=== PATIENT | female | born 1965 ===

== ENCOUNTER 2020-08-13 09:20 | Outpatient (REF) | payer OTHER, SELFPAY | END 2020-08-13 09:21 | disposition home or self-care (01) | LOC: HO.LAB 09:20 | PROVIDERS: Visit Provider Hospitalist | DX: Z20.822 Contact with and (suspected) exposure to COVID-19 (principal) | CPT/HCPCS: 36415; U0003 ==

== ENCOUNTER 2020-11-14 14:35 | Outpatient (REF) | payer OTHER, SELFPAY ==
[2020-11-20 14:22] LABS: HPV mRNA E6/E7 Not Detected (Not Detected)
== END 2020-11-14 14:36 | disposition home or self-care (01) ==
LOC: HO.LNP 14:35
PROVIDERS: Visit Provider Internal Medicine
DX: Z12.4 Encounter for screening for malignant neoplasm of cervix (principal); Z11.51 Encounter for screening for human papillomavirus (HPV)
CPT/HCPCS: 87624; 88142

== ENCOUNTER → 2020-12-19 13:28 | Outpatient (BNVA) | payer OTHER, SELFPAY | PROVIDERS: PCP Internal Medicine; Visit Provider Physician Assistant | DX: Z12.11 Encounter for screening for malignant neoplasm of colon (principal); K21.9 Gastro-esophageal reflux disease without esophagitis | CPT/HCPCS: Q3014 ==

== ENCOUNTER 2021-01-03 15:14 | Outpatient (REF) | payer OTHER, SELFPAY ==
--- NOTE | ~2021-01-03 | MM_ITS ---
EXAMINATION: MM SCREENING DIGITAL BREAST TOMOSYNTHESIS, BILATERAL CLINICAL INFORMATION: Screening. Asymptomatic. The lifetime risk of breast cancer based on the Tyrer-Cuzick Model is 7%. COMPARISON: Mammography: 09/29/2016, 05/25/2011, 07/30/2008 TECHNIQUE: Digital breast tomosynthesis is performed in both the craniocaudal and mediolateral oblique views along with computer-aided detection (CAD). Synthesized 2D images are generated from the tomosynthesis. Additional exaggerated right CC view is provided. FINDINGS: There are scattered areas of fibroglandular density (ACR BI-RADS breast composition Category b). There are no significant masses, abnormal calcifications, or other abnormalities. Parenchymal pattern is similar to prior studies. Skin contours are smooth. MM/MM tomosynthesis screening BI IMPRESSION: No mammographic evidence of malignancy. ASSESSMENT: BI-RADS 1: Negative RECOMMENDATION: Routine annual mammography screening. This patient's information was entered into a reminder system with a target due date for their next mammogram.
== END 2021-01-03 15:15 | disposition home or self-care (01) ==
LOC: HO.MAMMO 15:14
PROVIDERS: PCP Internal Medicine; Visit Provider Internal Medicine
DX: Z12.31 Encounter for screening mammogram for malignant neoplasm of breast (principal)
CPT/HCPCS: 77063; 77067

== ENCOUNTER 2021-01-13 11:58 | Day surgery (SDC) | payer OTHER, SELFPAY ==
--- NOTE | 2021-01-10 08:54 | P.CONAN_ITS ---
Documented by User: Kiki Gonzalezney 01/10/21 08:54 HPI - Anesthesia Eval Consult details Narrative: 55yo F for Upper Endoscopy and Colonoscopy PMFSH Active Problems Active Problems: All Active Problems (Updated 12/19/20 @ 14:02 by Charito Thompson PA-C) Encounter for screening laboratory testing for COVID-19 virus in asymptomatic patient (Acute) Atopic dermatitis (Acute) Encounter for screening colonoscopy (Acute) Acid reflux (Acute) Encounter for general adult medical examination with abnormal findings (Acute) Anxiety disorder (Acute) Calcific tendinitis of right shoulder region (Acute) Chronic gastritis (Acute) Mixed dyslipidemia (Acute) Cervical neck pain with evidence of disc disease (Acute) Restless leg syndrome (Acute) Dysequilibrium (Acute) Breast cancer screening by mammogram (Acute) Cervical cancer screening (Acute) Past Medical History Medical History Anxiety disorder Bartholin's gland cyst Breast cancer screening by mammogram Calcific tendinitis of right shoulder region Cervical cancer screening Cervical neck pain with evidence of disc disease Chronic gastritis Dysequilibrium Encounter for general adult medical examination with abnormal findings Mixed dyslipidemia Restless leg syndrome Smoker Family History Family History Other No pertinent family history in first degree relatives Surgical History Surgical History S/P trigger finger release Status post arthroscopy of right shoulder Social History Social History Household Members: None Alcohol intake: never Patient Tobacco Use Status: Current everyday Tobacco user Tobacco use type: Cigarette Cigarettes Per Day: 10 Smoked in Last 30 Days: Yes Use of substances other than those prescribed or required for medical reasons: No Are you DNR?: Yes Advance Directives: No Advance Directives Information Provided: Yes Meds Allergies Allergy/AdvReac Type Severity Reaction Status Date / Time iodine [Iodine] Allergy Severe ANAPHYLAXIS Verified 01/08/21 10:16 Shellfish Allergy Severe ANAPHYLAXIS Uncoded 01/08/21 10:16 [id number]-INOP-[id number] Allergy Mild stomach Uncoded 01/08/21 10:16 upset Environmental Allergy Mild itchy Uncoded 01/08/21 10:16 watery eyes, sneezing Home Medications Medication Instructions Recorded Confirmed Last Taken Type sumatriptan succinate 100 mg tablet 100 mg PO Q2-4H PRN 09/19/20 01/08/21 Unknown History atorvastatin 20 mg tablet 20 mg PO DAILY 11/14/20 01/08/21 Unknown History bupropion HCl 100 mg tablet,12 hr 100 mg PO QAM 11/14/20 01/08/21 Unknown History sustained-release clonazepam 0.5 mg tablet 0.5 mg PO BID PRN 11/14/20 01/08/21 Unknown History fluoxetine 20 mg capsule 20 mg PO DAILY 11/14/20 01/08/21 Unknown History fluoxetine 40 mg capsule 40 mg PO DAILY 11/14/20 01/08/21 Unknown History topiramate 25 mg tablet 25 mg PO BID 11/14/20 01/08/21 Unknown History zolmitriptan 5 mg PO NEEDED PRN 01/08/21 01/08/21 Unknown History Exam Exam Date and Time: January 10, [id number] Assessment and Plan Assessment Anesthesia Assessment: Chart Reviewed Documented by User: Mara Travis 01/13/21 13:27 PMFSH Past Medical History Medical History Anxiety disorder Bartholin's gland cyst Breast cancer screening by mammogram Calcific tendinitis of right shoulder region Cervical cancer screening Cervical neck pain with evidence of disc disease Chronic gastritis Dysequilibrium Encounter for general adult medical examination with abnormal findings Mixed dyslipidemia Restless leg syndrome Smoker Family History Family History Other No pertinent family history in first degree relatives Surgical History Surgical History S/P trigger finger release Status post arthroscopy of right shoulder Social History Social History Household Members: None Alcohol intake: never Patient Tobacco Use Status: Current everyday Tobacco user Tobacco use type: Cigarette Cigarettes Per Day: 10 Smoked in Last 30 Days: Yes Use of substances other than those prescribed or required for medical reasons: No Are you DNR?: Yes Advance Directives: No Advance Directives Information Provided: Yes Meds Allergies Allergy/AdvReac Type Severity Reaction Status Date / Time iodine [Iodine] Allergy Severe ANAPHYLAXIS Verified 01/08/21 10:16 Shellfish Allergy Severe ANAPHYLAXIS Uncoded 01/08/21 10:16 Pkfcrmadyz-EXHY-Astmwdmp Allergy Mild stomach Uncoded 01/08/21 10:16 upset Environmental Allergy Mild itchy Uncoded 01/08/21 10:16 watery eyes, sneezing Home Medications Medication Instructions Recorded Confirmed Last Taken Type sumatriptan succinate 100 mg tablet 100 mg PO Q2-4H PRN 09/19/20 01/08/21 Unknown History atorvastatin 20 mg tablet 20 mg PO DAILY 11/14/20 01/08/21 Unknown History bupropion HCl 100 mg tablet,12 hr 100 mg PO QAM 11/14/20 01/08/21 Unknown Histor y sustained-release clonazepam 0.5 mg tablet 0.5 mg PO BID PRN 11/14/20 01/08/21 Unknown History fluoxetine 20 mg capsule 20 mg PO DAILY 11/14/20 01/08/21 Unknown History fluoxetine 40 mg capsule 40 mg PO DAILY 11/14/20 01/08/21 Unknown History topiramate 25 mg tablet 25 mg PO BID 11/14/20 01/08/21 Unknown History zolmitriptan 5 mg PO NEEDED PRN 01/08/21 01/08/21 Unknown History Exam Airway Mallampati Class: II TM Dist: >3cm Neck ROM: Full Heart: RRR Lungs: CTA Assessment and Plan Assessment Anesthesia Assessment: Anesthesia Plan Discussed and Chart Reviewed Final Anesthetic Review NPO: Yes ASA Class: II Final Preanesthetic Review: Meds/Allgs Chart Reviewed, Consent Obtained/Reviewed and Anes Risks/Benef Reviewed Patient Risk: Low Procedure Risk: Intermediate Anesthetic Plan Anesthetic Plan: MAC: Disposition: Standard PACU
[2021-01-13 12:21] VITALS: BMI 24.7
--- NOTE | 2021-01-13 12:42 | PC.NURSE ---
Patient states she is a DNR code status. She states she has filled one out at this hospital in the past. No DNR paperwork scanned into the [facility] system. Patient states her healthcare proxy is Muriel Vesta [phone].
--- NOTE | 2021-01-13 12:45 | PC.NURSE ---
Four silver bracelets removed and placed in labeled blue cup. Two rings do not come off per patient.
[2021-01-13 12:57] VITALS: BP 101/51; PULSE 51; RESP 16; TEMP 36.4; O2SAT 98
[2021-01-13] MEDS: Lactated Ringers 1,000 ML 100 ML IVCONT (12:58)
--- NOTE | 2021-01-13 13:11 | W.PM.OPN ---
Operative Note Operative Note Date of Service: 01/13/21 Narrative: Pre-op diagnosis: Colon cancer screening, GERD Post-op diagnosis: other (GERD, Gastritis, diverticulosis) Procedure: FLEXIBLE TRANSORAL UPPER GASTROINTESTINAL ENDOSCOPY WITH BIOPSIES AND COLONOSCOPY TILL CECUM UPPER ENDOSCOPY Consent: Indications for the procedure and potential complications of bleeding, perforation, reaction to medications and missed diagnosis were discussed with the patient and informed consent was obtained. Instrument: Olympus GIF H 190 mid size upper endoscope Monitoring: Vital signs and clinical assessment, continuous EKG monitoring, Pulse oximetry, Carbon Dioxide monitoring and blood pressure monitoring were done throughout the procedure. Procedure: The patient was placed in the left lateral decubitis position and pre-procedure medications were administered and a bite block was placed. The endoscope was inserted into the mouth and advanced under direct vision to the third part of duodenum. A careful inspection was made as the upper endoscope was withdrawn including a retroflexed examination of the proximal stomach; Findings and interventions are described below. Findings: Larynx: Normal Esophagus: GE junction at 37 cms. Irregular Z line - biopsied to check for Maria's. Stomach: Mild gastric antral erythema. Biopsies were obtained. Grade 2 flap valve on retroflexed examination of the cardia. Duodenum: Normal bulb and descending duodenum Intervention: Biopsies as noted above COLONOSCOPY PROCEDURE NOTE Consent: Indications for the procedure and potential complications of bleeding, perforation, reaction to medications and missed diagnosis were discussed with the patient and informed consent was obtained. Instrument: Olympus PCF H 190 L variable stiffness pediatric colonoscope Monitoring: Vital signs and clinical assessment, intermittent blood pressure monitoring, continuous EKG monitoring, Pulse oximetry and Carbon Dioxide monitoring were done throughout the procedure. Colon withdrawl time was 20 minutes. Procedure: The patient was placed in the left lateral decubitis position and pre-procedure medications were administered. After a digital rectal examination of the ano-rectum, the video colonoscope was inserted into the rectum and advanced through the colon to the cecum. The colonoscope was slowly withdrawn in a retrograde panoramic fashion and the colon mucosa was carefully examined including a retroflexed view of the rectum. Findings and interventions are described below. Procedure Difficulty: : Without difficulty Findings: Terminal Ileum: Not evaluated Cecum: Normal Ascending Colon: Normal Transverse Colon: Normal Descending Colon: Moderate diverticulosis Sigmoid Colon: Severe diverticulosis Rectum: Normal Ano-rectum: Normal. Colon preparation: Good after some irrigation Impression and Post Procedure Diagnosis: Endoscopy Findings: ESOPHAGUS: Irregular Z line - biopsied to check for Maria's. STOMACH: Gastritis Colonoscopy Findings: No polyps were detected Moderate diverticulosis seen in the left colon Plan: Await pathology results Patient has an appointment on 02/03/21 in the GI Clinic with CASANDRA Box . Repeat Colonoscopy interval based on path results - in 3-5 years if polyps are adenomatous and 10 years if polyps are hyperplastic. Above findings were reviewed with the patient and GERD and diverticulosis handouts were given in the discharge area Surgeon: Justin Ghosh MD Anesthesia: MAC (Charlotte Madden CRNA) Was an Transmission And Protection Engineer used for this Procedure?: No Transmission And Protection Engineer: Gildardo Yarbrough Estimated blood loss (mL): 0 Pathology: other (A- GASTRIC ANTRUM BXS R/O H. PYLORI B- EG JUNCTION BXS R/O MARIA'S) Condition: stable Disposition: PACU
--- NOTE | 2021-01-13 13:11 | MHC.SHP ---
Pre-Procedural Eval Section A The patient is an INPATIENT: No The History & Physical has been completed within 30 days and I have reviewed it.: Yes Section B Chief Complaint: Acid Reflux, Screening Allergies: Allergies Allergy/AdvReac Type Severity Reaction Status Date / Time iodine [Iodine] Allergy Severe ANAPHYLAXIS Verified 01/08/21 10:16 Shellfish Allergy Severe ANAPHYLAXIS Uncoded 01/08/21 10:16 Qyhjhefquu-OIKI-Aowcildd Allergy Mild stomach Uncoded 01/08/21 10:16 upset Environmental Allergy Mild itchy Uncoded 01/08/21 10:16 watery eyes, sneezing Review of Systems Sugical H&P ROS: Negative: Constitution, Cardiovascular and Respiratory and Yes, Specify: Gastrointestinal (GERD) Exam Surgical H&P Exam: Normal: Heart, Normal: Lungs and Normal: Abdomen Plan Diagnosis/Plan: Unchanged I have reviewed the history and physical and performed a pertinent physical examination on my patient. No changes have occurred unless specified.
--- NOTE | 2021-01-13 13:41 | PC.NURSE ---
upon further discussion with anesthesia, pt states she IS NOT A DNR.
[2021-01-13 14:48] VITALS: BP 113/61; PULSE 66; RESP 14; TEMP 36.1; O2SAT 97
[2021-01-13 15:02] VITALS: BP 109/56; PULSE 62; RESP 18; O2SAT 98
== END 2021-01-13 15:29 | disposition home or self-care (01) ==
PROVIDERS: PCP Internal Medicine; Visit Provider Internal Medicine Gastroenterology
PROC: (CPT 45378; principal; 2021-01-13 13:10)
DX: Z12.11 Encounter for screening for malignant neoplasm of colon (principal); K57.30 Diverticulosis of large intestine without perforation or abscess without bleeding; K29.50 Unspecified chronic gastritis without bleeding; K21.9 Gastro-esophageal reflux disease without esophagitis; E78.5 Hyperlipidemia, unspecified; G25.81 Restless legs syndrome; R42 Dizziness and giddiness; F17.210 Nicotine dependence, cigarettes, uncomplicated; Z79.899 Other long term (current) drug therapy; Z88.8 Allergy status to other drugs, medicaments and biological substances
CPT/HCPCS: 45378; 43239; 88305; 88342; J2250

== ENCOUNTER → 2021-02-03 13:14 | Outpatient (BNVA) | payer OTHER, SELFPAY | PROVIDERS: PCP Internal Medicine; Visit Provider Physician Assistant | DX: K57.30 Diverticulosis of large intestine without perforation or abscess without bleeding (principal); K21.9 Gastro-esophageal reflux disease without esophagitis; E78.2 Mixed hyperlipidemia; F41.9 Anxiety disorder, unspecified; F17.210 Nicotine dependence, cigarettes, uncomplicated; Z88.8 Allergy status to other drugs, medicaments and biological substances; Z91.013 Allergy to seafood; Z91.09 Other allergy status, other than to drugs and biological substances; Z79.899 Other long term (current) drug therapy | CPT/HCPCS: 99212 ==

== ENCOUNTER 2021-03-04 09:28 | Outpatient (REF) | payer OTHER, SELFPAY ==
[2021-03-04 11:17] LABS: MANUAL DIFF FLAG NO
[2021-03-04 11:27] LABS: Basophils Percent Auto 0.5 % (0-2); Eosinophils Absolute Auto 0.2 X10*3/uL (0.0-0.4); Eosinophils Percent Auto 5.6 % (0-4); Hematocrit 40.6 % (37-47); Hemoglobin 13.1 g/dl (12.0-16.0); Imm Gran Abs Auto 0.02 X10*3/uL (0.00-0.03); Imm Gran Pct Auto 0.5 % (0.0-0.4); Lymphocytes Absolute Auto 1.5 X10*3/uL (1.2-4.9); Mean Corpuscular HGB Conc 32.3 g/dl (31.0-35.0); Mean Platelet Volume 9.4 fL (9.4-12.3); Monocytes Absolute Auto 0.5 X10*3/uL (0.1-1.2); Neutrophils Percent Auto 47.4 % (45-73); Platelet Count 314 X10*3/uL (160-400); Red Cell Distribution Width 12.3 % (11.0-16.0); White Blood Count 4.3 X10*3/uL (4.8-10.8)
[2021-03-04 12:03] LABS: Alanine Aminotransferase 30 U/L (0-31); Anion Gap 13 (12-20); Aspartate Amino Transferase 24 U/L (5-31); Blood Urea Nitrogen 21 mg/dL (9-16); Calcium 9.6 mg/dL (8.4-10.2); Carbon Dioxide 24 mmol/L (22-29); Chloride 111 mmol/L (96-108); Cholesterol 235 mg/dL; Estimated Glomerular Filt Rate > 60; Glucose Fasting 47 mg/dL (60-99); HDL Cholesterol 40 mg/dL; LDL Cholesterol Calculated 151 mg/dl; Potassium 4.7 mmol/L (3.3-5.1); Sodium 143 mmol/L (135-145); TSH reflex Free T4 0.65 uIU/mL (0.32-4.0); Triglycerides 222 mg/dL
[2021-03-04 12:19] LABS: Folate 19.6 ng/mL (> or = 4.0); Vitamin B12 531 pg/mL (200-900)
== END 2021-03-04 09:29 | disposition home or self-care (01) ==
LOC: HO.HMGCLDS 09:28
PROVIDERS: PCP Internal Medicine; Visit Provider Internal Medicine
DX: Z00.01 Encounter for general adult medical examination with abnormal findings (principal); R42 Dizziness and giddiness; I10 Essential (primary) hypertension
CPT/HCPCS: 36415; 80048; 80061; 82306; 82607; 82746; 84443; 84450; 84460; 85025

== ENCOUNTER 2021-03-14 10:25 | Outpatient (REF) | payer OTHER, SELFPAY ==
[2021-03-14 11:42] LABS: Glucose Fasting 97 mg/dL (60-99)
== END 2021-03-14 10:26 | disposition home or self-care (01) ==
LOC: HO.HMGCLDS 10:25
PROVIDERS: PCP Internal Medicine; Visit Provider Internal Medicine
DX: E16.2 Hypoglycemia, unspecified (principal)
CPT/HCPCS: 36415; 82947

== ENCOUNTER 2021-11-28 11:47 | Outpatient (REF) | payer OTHER, SELFPAY ==
[2021-11-28 13:40] LABS: MANUAL DIFF FLAG NO
[2021-11-28 13:50] LABS: Basophils Absolute Auto 0.1 X10*3/uL (0.0-0.2); Basophils Percent Auto 0.6 % (0-2); Eosinophils Absolute Auto 0.2 X10*3/uL (0.0-0.4); Eosinophils Percent Auto 1.9 % (0-4); Hematocrit 41.3 % (37.0-47.0); Hemoglobin 13.5 g/dl (12.0-16.0); Imm Gran Abs Auto 0.03 X10*3/uL (0.00-0.03); Imm Gran Pct Auto 0.4 % (0.0-0.4); Lymphocytes Absolute Auto 2.8 X10*3/uL (1.2-4.9); Lymphocytes Percent Auto 33.1 % (20-40); Mean Corpuscular HGB Conc 32.7 g/dl (31.0-35.0); Mean Corpuscular Hemoglobin 31.8 pg (27.0-33.0); Mean Corpuscular Volume 97.4 fL (80.0-98.0); Monocytes Absolute Auto 0.8 X10*3/uL (0.1-1.2); Monocytes Percent Auto 9.4 % (2-11); Neutrophils Absolute Auto 4.7 x10*3/uL (2.0-8.3); Neutrophils Percent Auto 54.6 % (45-73); Platelet Count 356 X10*3/uL (160-400); Red Blood Count 4.24 X10*6/uL (4.20-5.50); White Blood Count 8.5 X10*3/uL (4.8-10.8)
[2021-11-28 13:59] LABS: Alanine Aminotransferase 20 U/L (0-31); Anion Gap 13 (12-20); Aspartate Amino Transferase 20 U/L (5-31); Blood Urea Nitrogen 18 mg/dL (9-16); Calcium 9.8 mg/dL (8.4-10.2); Carbon Dioxide 25 mmol/L (22-29); Chloride 108 mmol/L (96-108); Cholesterol 241 mg/dL; Estimated Glomerular Filt Rate > 60; Glucose Fasting 83 mg/dL (60-99); HDL Cholesterol 53 mg/dL; LDL Cholesterol Calculated 150 mg/dl; Potassium 4.6 mmol/L (3.3-5.1); Sodium 141 mmol/L (135-145); Triglycerides 191 mg/dL
[2021-11-28 14:24] LABS: TSH reflex Free T4 1.05 uIU/mL (0.32-4.0); Vitamin D 25-OH Total 34.7 ng/mL (>30)
[2021-11-28 14:31] LABS: Folate 18.8 ng/mL (> or = 4.0); Vitamin B12 452 pg/mL (200-900)
== END 2021-11-28 11:48 | disposition home or self-care (01) ==
LOC: HO.HMGCLDS 11:47
PROVIDERS: Visit Provider Internal Medicine
DX: Z00.01 Encounter for general adult medical examination with abnormal findings (principal); E78.2 Mixed hyperlipidemia; F41.1 Generalized anxiety disorder; K29.50 Unspecified chronic gastritis without bleeding; G11.8 Other hereditary ataxias
CPT/HCPCS: 36415; 80048; 80061; 82306; 82607; 82746; 84443; 84450; 84460; 85025

== ENCOUNTER 2022-09-11 13:05 | Outpatient (AMB) | payer OTHER, SELFPAY ==
--- NOTE | 2022-09-11 13:35 | MHC.PC.OV ---
Vital Signs 09/11/22 13:38 Height 5 ft 3 in Weight 124 lb BMI 21.9 BP 102/60 Blood Pressure Location Rt brachial Position Sitting Pulse 67 Pulse Source Pulse Oximeter Pulse Oximetry (%) 98 Oxygen Delivery Method Room Air Intake Visit Reasons: obgyn issue Intake Note: Pt is here today discuss painful upon intercourse Allergies iodine [Iodine] Allergy (Severe, Verified 03/17/23 08:58) ANAPHYLAXIS Shellfish Allergy (Severe, Uncoded 03/17/23 08:58) ANAPHYLAXIS Svuozbwdro-XEWM-Ienlppnz Allergy (Mild, Uncoded 03/17/23 08:58) stomach upset Environmental Allergy (Mild, Uncoded 03/17/23 08:58) itchy watery eyes, sneezing Medication List - Last Reconciled 09/11/22 by Fabiana Rae MD carisoprodol 350 mg PO .qd PRN clonazepam 0.5 mg PO BID PRN estradiol 0.01%(0.1mg/gram) (Estrace) 1 g vaginal 2XW fluoxetine 40 mg PO DAILY fluoxetine 20 mg PO DAILY fluticasone propionate 50 mcg/actuation 1 spray intranasal DAILY gabapentin 400 mg PO TID loratadine 10 mg PO DAILY PRN multivitamin (One-A-Day Essential tablet) 1 tab PO DAILY omega-3 fatty acids 1,000 mg PO DAILY omeprazole 40 mg PO QAM topiramate 100 mg PO BID Tobacco use date assessed: 09/11/22 HPI obgyn issue HPI Details 67-year-old lady here today complaining of dyspareunia. This has been a present now on and off for the last several months and is getting worse. She has tried using litc-fpy-mrhmewm lubricants, which has not afforded any relief. [facility] Medical History Anxiety disorder Bartholin's gland cyst Calcific tendinitis of right shoulder region Cervical neck pain with evidence of disc disease Chronic gastritis Diverticulosis of colon Dysequilibrium Episodic ataxia Generalized anxiety disorder Macular degeneration of left eye Migraine Mixed dyslipidemia Restless leg syndrome Smoker Vaginal dryness, menopausal Surgical History H/O colonoscopy H/O esophagogastroduodenoscopy S/P trigger finger release Status post arthroscopy of right shoulder Family History Other No pertinent family history in first degree relatives Social History Household Members: None Housing: Apartment Alcohol intake: never Patient Tobacco Use Status: Former Tobacco user Cigarette Packs Per Day: 1 Cigarettes Per Day: 20 e-Cigarette/Vaping Use: Currently Using service: No Current occupational status: employed Current occupation: behavioral health Current occupational exposures/hazards: No Cognitive needs: No Hearing needs: No Vision needs: No Questionnaire PHQ-9 Over the last 2 weeks, how often have you been bothered by any of the following problems? 1. Little interest or pleasure in doing things: more than half the days 2. Feeling down, depressed, or hopeless: more than half the days 3. Trouble falling or staying asleep, or sleeping too much: nearly every day 4. Feeling tired or having little energy: nearly every day 5. Poor appetite or overeating: nearly every day 6. Feeling bad about yourself - or that you are a failure or have let yourself or your family down: not at all 7. Trouble concentrating on things, such as reading the newspaper or watching television: not at all 8. Moving or speaking so slowly that other people could have noticed. Or the opposite - being so fidgety or restless that you have been moving around a lot more than usual: nearly every day 9. Thoughts that you would be better off or of hurting yourself in some way: not at all Total score: 16 Depression Screening Interpretation: Positive Depression Screening Follow-up: Existing condition, In treatment and Community Mental Health Worker F/U (Followed by psychiatry) Source: Developed by Drs. Pio Gama, Eleanor Ortega, Ismael Harris and colleagues, with an educational olegario from 5o9. Thrive Questionnaire Declines Thrive assessment: No Date Thrive assessed: 09/11/22 I am a: Patient What is your living situation today?: I have a steady place to live Within the past 12 months, did the food you bought not last and you didn't have the money to get more?: Never true Within the past 12 months, did you worry whether your food would run out before you got money to buy more?: Never true Do you have trouble paying for medicines?: No Do you have trouble getting transportation to medical appointments?: No Do you have trouble paying your heating and electricity bill?: No Do you have trouble taking care of your child, family member or friend?: No Do you have trouble with day-to-day activities such as bathing, preparing meals, shopping, managing finances, etc.?: No Are you currently unemployed and looking for a job?: No Are you interested in more education?: No AUDIT C Alcohol Use Questionnaire (AUDIT-C) 1. How often do you have a drink containing alcohol?: Never Total Score: 0 SAMMIE-7 AMB Questionnaire SAMMIE-7 Date SAMMIE - 7 assessed: 09/11/22 Feeling nervous, anxious, or on edge: 1 = Several days Not being able to stop or control worryin = Several days Worrying too much about different things: 1 = Several days Trouble relaxin = Several days Being so restless that it is hard to sit still: 2 = More than half the days Becoming easily annoyed or irritable: 1 = Several days Feeling afraid as if something awful might happen: 0 = Not at all Total SAMMIE-7 score (0-4 normal; 5-9 mild; 10-14 moderate; 15-21 severe): 7 Source: Developed by Drs. Pio Gama, Eleanor Ortega, Ismael Harris and colleagues, with an educational olegario from 5o9. SAMMIE-7 Assessment Billing SAMMIE-7 Assessment Tool: SAMMIE-7 Assessment 50196 Review of Systems Const All systems reviewed & are unremarkable except as noted in HPI and below Physical exam (Primary Care) Vital Signs: Last Vital Signs Pulse 67 09/11/22 13:38 BP 102/60 09/11/22 13:38 Pulse Ox 98 09/11/22 13:38 Oxygen Delivery Method Room Air 09/11/22 13:38 BMI result Body Mass Index 21.9 Tobacco/Smoking Status: Tobacco use Status Tobacco use date assessed 09/11/22 09/11/22 13:38 Patient Tobacco Use Status Current everyday Tobacco 09/11/22 13:38 Tobacco use type Cigarette 09/11/22 13:38 e-Cigarette/Vaping Use Never Used 09/11/22 13:38 PHQ-9: PHQ-9 Score PHQ-9: Total score 16 09/11/22 14:00 Depression Screening Interpretation: Positive Depression Screening Follow-up: Existing condition, In treatment and Community Mental Health Worker F/U (Followed by psychiatry) Thrive Assessment: Date of Thrive Assessment Date Thrive assessed 09/11/22 09/11/22 13:49 Const Other: Alert oriented x3, no acute distress noted ambulatory normal gait GI Inspection: Yes normal to inspection Palpation (GI): Soft to palpation, nontender, no guarding and no masses External Female Exam: normal external appearance and normal appearance of the urethra Speculum Exam - Vagina: normal vaginal discharge, vagina atrophic, no lesions and no masses Assessment and Plan Assessment & Plan (1) Vaginal dryness, menopausal: Code(s): N95.1 - Menopausal and female climacteric states Plan: Prescription sent for Estrace 0.01% to apply intravaginally twice a week. Return to the clinic if no improvement of symptoms after 6 weeks of using the medication Medications: Refilled estradiol 0.01%(0.1mg/gram) (Estrace) apply 1 applicatorful intravaginally twice a week , advise that this is a hormone , and may cause worsening of migraine 1 g vaginal 2XW 42.5 grams 1RF N95.1 - Menopausal and female climacteric states Coding Level of Care Code Est Pt Level 3 (71924) Diagnoses Vaginal dryness, menopausal N95.1 Additional Codes SAMMIE-7 Assessment Billing - SAMMIE-7 Assessment Tool: SAMMIE-7 Assessment 33715 ([id number])
[2022-09-11 13:38] VITALS: BP 102/60; PULSE 67; O2SAT 98; BMI 21.9
== END 2022-09-11 14:00 | disposition home or self-care (01) ==
LOC: HO.HMGC 13:05
PROVIDERS: PCP Internal Medicine; Visit Provider Internal Medicine
DX: N95.1 Menopausal and female climacteric states (principal)
CPT/HCPCS: 99213

== ENCOUNTER 2023-03-17 08:31 | Outpatient (AMB) | payer OTHER, SELFPAY ==
--- NOTE | 2023-03-17 08:42 | MHC.PC.OV ---
Vital Signs 03/17/23 08:43 Height 5 ft 3 in Weight 124 lb BMI 22.0 BP 108/70 Blood Pressure Location Lt brachial Position Sitting Pulse 64 Pulse Source Pulse Oximeter Pulse Oximetry (%) 98 Oxygen Delivery Method Room Air Intake Visit Reasons: ozzy MORRIS pap Intake Note: Pt is here today for her PE and pap smear Allergies iodine [Iodine] Allergy (Severe, Verified 03/17/23 08:58) ANAPHYLAXIS Shellfish Allergy (Severe, Uncoded 03/17/23 08:58) ANAPHYLAXIS [id number]-PODM-[id number] Allergy (Mild, Uncoded 03/17/23 08:58) stomach upset Environmental Allergy (Mild, Uncoded 03/17/23 08:58) itchy watery eyes, sneezing Medication List - Last Reconciled 03/17/23 by Fabiana Rae MD carisoprodol 350 mg PO .qd PRN estradiol 0.01%(0.1mg/gram) (Estrace) 1 g vaginal 2XW fluoxetine 40 mg PO DAILY fluoxetine 80 mg PO DAILY fluticasone propionate 50 mcg/actuation 1 spray intranasal DAILY gabapentin 400 mg PO TID multivitamin (One-A-Day Essential tablet) 1 tab PO DAILY omega-3 fatty acids 1,000 mg PO DAILY omeprazole 40 mg PO QAM Tobacco use date assessed: 03/17/23 Dental Screening Dental Screen Date: 03/17/23 Did you have a dental visit in the last 12 months?: Yes Did you have a dental problem in the last 6 months where you did not have access to dental care?: No Was dental information given to patient?: Patient has dentist HPI ozzy MORRIS pap HPI Details 57-year-old lady with history of generalized anxiety disorder, episodic ataxia, migraine headache, macular degeneration of left eye, mixed dyslipidemia, here today for of physical exam. She is currently being seen by her therapist at [facility] and sees her psychiatrist online, with fluoxetine dose recently increased to 80 mg daily. She has been seen at [facility] neurology, last appointment was in March of 2022 for her migraine headache and episodic ataxia, thought to be related to migraine status post failed trial of acetazolamide due to intolerance. Patient was placed on prophylaxis drops topiramate but stopped taking it, and has not kept her follow-up appointment with them 6 months after that visit. She has just been taking ibuprofen alternating with Tylenol which afforded only temporary relief. She had an EEG done which showed no epileptiform activity, seizures, or persistent focal asymmetries seen. , patient states that she has tried sumatriptan which has not helped. She has been advised to avoid taking NSAIDs as she has prior history of GI bleed and potential for long-term deleterious effects on the kidneys. She was advised to do a retrial of sumatriptan and continue topiramate, patient however did not do both. She also has been advised to quit smoking and vaping but patient states she is not ready to quit at present time. She is overdue for her cervical cancer screening will do 1today, and is overdue for her breast cancer screening which will be ordered today as well. Had a colonoscopy and an upper EGD done by Dr. Ghosh in 2020, currently on omeprazole for gastritis. Has had COVID vaccination and gets yearly flu shots and up-to-date with Tdap, doesnot want to get a COVID booster , reminded to get Shingrix vaccine PFS Medical History Anxiety disorder Bartholin's gland cyst Calcific tendinitis of right shoulder region Cervical neck pain with evidence of disc disease Chronic gastritis Diverticulosis of colon Dysequilibrium Episodic ataxia Generalized anxiety disorder Macular degeneration of left eye Migraine Mixed dyslipidemia Restless leg syndrome Smoker Vaginal dryness, menopausal Surgical History H/O colonoscopy H/O esophagogastroduodenoscopy S/P trigger finger release Status post arthroscopy of right shoulder Family History Other No pertinent family history in first degree relatives Social History Household Members: None Housing: Apartment Alcohol intake: never Patient Tobacco Use Status: Former Tobacco user Cigarette Packs Per Day: 1 Cigarettes Per Day: 20 e-Cigarette/Vaping Use: Currently Using service: No Current occupational status: employed Current occupation: behavioral health Current occupational exposures/hazards: No Cognitive needs: No Hearing needs: No Vision needs: No Questionnaire PHQ-9 Over the last 2 weeks, how often have you been bothered by any of the following problems? Depression Screening Interpretation: Positive Depression Screening Follow-up: Existing condition and In treatment Source: Developed by Drs. Pio Gama, Ismael Mantilla and colleagues, with an educational olegario from [employer]. Thrive Questionnaire Date Thrive assessed: 09/11/22 AUDIT C Alcohol Use Questionnaire (AUDIT-C) 1. How often do you have a drink containing alcohol?: Never Total Score: 0 SAMMIE-7 AMB Questionnaire SAMMIE-7 Date SAMMIE - 7 assessed: 09/11/22 Source: Developed by Drs. Pio Gama, Ismael Mantilla and colleagues, with an educational olegario from [employer]. Review of Systems Const Reports fatigue, Denies fever(s), Reports frequent falls and Denies weakness Eyes Reports blurry vision and Denies itchy eyes ENT Denies dysphagia, Denies otalgia, Denies epistaxis, Denies nasal congestion and Reports post nasal drip Card Denies chest pain at rest, Denies chest pain with activity, Denies leg edema and Denies palpitations Resp Reports no additional complaints and Denies wheezing GI Denies abdominal pain, Denies hematochezia, Denies change in bowel habits, Denies dysphagia and Reports heartburn ( improved with PPI and avoidance of culprits) Denies hematuria, Denies dysuria, Denies urinary incontinence and Denies urinary hesitancy Musc Reports abnormal gait (occasional), Reports stiffness and Reports tingling Skin/Breast Denies breast pain, Denies breast mass and Reports rash Neuro Reports abnormal gait (occasional), Reports frequent falls, Reports lack of coordination (occasional), Denies convulsions, Denies Sensory deficit (Neuro), Reports tingling, Reports paresthesias and Denies weakness Psych Reports as per HPI Endo Denies cold intolerance, Reports fatigue, Denies polyphagia, Denies polydipsia, Denies polyuria and Denies palpitations Donnie/Lymph Denies easy bleeding and Denies easy bruising Aller/Immun Denies itchy eyes, Denies seasonal rhinorrhea and Denies wheezing Physical exam (Primary Care) Vital Signs: Last Vital Signs Pulse 64 03/17/23 08:43 BP 108/70 03/17/23 08:43 Pulse Ox 98 03/17/23 08:43 Oxygen Delivery Method Room Air 03/17/23 08:43 BMI result Body Mass Index 22.0 Tobacco/Smoking Status: Tobacco use Status Tobacco use date assessed 03/17/23 03/17/23 08:50 Patient Tobacco Use Status Former Tobacco user 03/17/23 08:50 Tobacco use type 03/17/23 08:50 e-Cigarette/Vaping Use Currently Using 03/17/23 08:50 Depression Screening Interpretation: Positive Depression Screening Follow-up: Existing condition and In treatment Thrive Assessment: Date of Thrive Assessment Date Thrive assessed 09/11/22 03/17/23 08:50 Const Other: Alert oriented x3, no acute distress noted in the gait Orientation/consciousness: patient oriented x3 HENMT Head: Yes normocephalic and Yes atraumatic Ears: hearing grossly normal bilaterally, TM's normal bilaterally and EAC's normal General nose exam: Normal external nose present Face and sinus: Yes face symmetric Mouth: Normal oral and palatal mucosa present and moist mucous membranes Eyes General: appearance normal, both eyes and all related structures Neck Neck: Yes full ROM, Yes no lymphadenopathy and Yes supple Chest Breast/axilla palpation: normal palpation of the breasts Resp Auscultation: clear to auscultation bilaterally Cardio Rate: regular rate Rhythm: regular rhythm Heart sounds: S1 normal heart sound present GI Palpation (GI): Soft to palpation, nontender and no guarding General: Yes no CVA tenderness External Female Exam: normal external appearance and normal appearance of the urethra Speculum Exam - Vagina: normal appearance of the vagina, normal palpation, vagina atrophic and other (Scant vaginal discharge) Speculum Exam - Cervix: normal appearance of the cervix, normal palpation, Cervical os open and nontender Bimanual exam- vagina & uterus: normal palpation, normal palpation and No Cervical tenderness present Bimanual Exam- Adnexa, other: normal adnexae, adnexae mobile, no masses, normal and No adnexal tenderness OB/external & speculum: Cervical os open Back/Spine/Pelvis Back: no CVA tenderness and No back tenderness Skin General skin exam: no rashes or lesions noted Neuro General: patient oriented x3, gait normal, tone normal, moves all extremities, Normal light touch and pain sensation, no focal motor deficits and CN's II-XI intact bilaterally Sensory Exam: No Sensory deficit (Neuro) Extrem General: Yes full ROM, Yes no joint enlargement, Yes no pedal edema and Yes normal gait Psych Appearance: grossly normal and well kempt Mental Status: mental status grossly normal Speech and movement: Normal speech and movement present Affect: normal affect Attitude: cooperative Assessment and Plan Assessment & Plan (1) Annual visit for general adult medical examination with abnormal findings: Code(s): Z00.01 - Encounter for general adult medical examination with abnormal findings Plan: Will check appropriate labs. Recommended dental visit every 6 months and regular eye exams, at least every 2 years. Take adequate calcium in diet and vitamin-D 3 at 2000 IU per cap once a day, in addition to weight-bearing exercises to help maintain good muscle tone and weight control. Instructed to do self-breast exam, and recommended to get yearly mammogram, starting at age 40. Immunization information provided: Yearly flu vaccine, shingles vaccine starting at age 50, at age 65 to start getting Prevnar 13 followed 1 year later by Pneumovax 23. Colonoscopy (2) Generalized anxiety disorder: Code(s): F41.1 - Generalized anxiety disorder Plan: Currently being seen by psychiatrist and therapist, on fluoxetine 80 mg daily (3) Episodic ataxia: Code(s): G11.8 - Other hereditary ataxias Plan: Advised to follow-up with [facility] neurology, currently overdue (4) Migraine: Code(s): G43.909 - Migraine, unspecified, not intractable, without status migrainosus Plan: Advised to schedule follow-up appointment with [facility] neurology, overdue (5) Macular degeneration of left eye: Code(s): H35.30 - Unspecified macular degeneration Plan: Advised to follow-up with her Ophthalmology, (6) Vaginal dryness, menopausal: Code(s): N95.1 - Menopausal and female climacteric states Plan: Improved with estradiol cream, Refill prescription sent (7) Chronic gastritis: Code(s): K29.50 - Unspecified chronic gastritis without bleeding Qualifiers: Gastritis bleeding: without bleeding Gastritis type: unspecified gastritis Qualified Code(s): K29.50 - Unspecified chronic gastritis without bleeding Plan: Continue omeprazole (8) Mixed dyslipidemia: Code(s): E78.2 - Mixed hyperlipidemia Plan: Fasting labs ordered today to check lipid (9) Restless leg syndrome: Code(s): G25.81 - Restless legs syndrome Plan: Hemoglobin hematocrit ordered (10) Cervical cancer screening: Code(s): Z12.4 - Encounter for screening for malignant neoplasm of cervix Plan: Pap smear and pelvic exam done today Orders: Orders MM screening mammo BI 03/17/23 Z12.31 - Encounter for screening mammogram for malignant neoplasm of breast Hemoglobin and Hematocrit 03/17/23 F41.1 - Generalized anxiety disorder, G11.8 - Other hereditary ataxias, G43.909 - Migraine, unspecified, not intractable, without status migrainosus, H35.30 - Unspecified macular degeneration, N95.1 - Menopausal and female climacteric states, K29.50 - Unspecified chronic gastritis without bleeding, E78.2 - Mixed hyperlipidemia, G25.81 - Restless legs syndrome, Z00.01 - Encounter for general adult medical examination with abnormal findings Lipid Panel 03/17/23 F41.1 - Generalized anxiety disorder, G11.8 - Other hereditary ataxias, G43.909 - Migraine, unspecified, not intractable, without status migrainosus, H35.30 - Unspecified macular degeneration, N95.1 - Menopausal and female climacteric states, K29.50 - Unspecified chronic gastritis without bleeding, E78.2 - Mixed hyperlipidemia, G25.81 - Restless legs syndrome, Z00.01 - Encounter for general adult medical examination with abnormal findings Alanine Aminotransferase 03/17/23 F41.1 - Generalized anxiety disorder, G11.8 - Other hereditary ataxias, G43.909 - Migraine, unspecified, not intractable, without status migrainosus, H35.30 - Unspecified macular degeneration, N95.1 - Menopausal and female climacteric states, K29.50 - Unspecified chronic gastritis without bleeding, E78.2 - Mixed hyperlipidemia, G25.81 - Restless legs syndrome, Z00.01 - Encounter for general adult medical examination with abnormal findings Aspartate Amino Transferase 03/17/23 F41.1 - Generalized anxiety disorder, G11.8 - Other hereditary ataxias, G43.909 - Migraine, unspecified, not intractable, without status migrainosus, H35.30 - Unspecified macular degeneration, N95.1 - Menopausal and female climacteric states, K29.50 - Unspecified chronic gastritis without bleeding, E78.2 - Mixed hyperlipidemia, G25.81 - Restless legs syndrome, Z00.01 - Encounter for general adult medical examination with abnormal findings Vitamin B12 and Folate 03/17/23 F41.1 - Generalized anxiety disorder, G11.8 - Other hereditary ataxias, G43.909 - Migraine, unspecified, not intractable, without status migrainosus, H35.30 - Unspecified macular degeneration, N95.1 - Menopausal and female climacteric states, K29.50 - Unspecified chronic gastritis without bleeding, E78.2 - Mixed hyperlipidemia, G25.81 - Restless legs syndrome, Z00.01 - Encounter for general adult medical examination with abnormal findings Basic Metabolic Panel Fasting 03/17/23 F41.1 - Generalized anxiety disorder, G11.8 - Other hereditary ataxias, G43.909 - Migraine, unspecified, not intractable, without status migrainosus, H35.30 - Unspecified macular degeneration, N95.1 - Menopausal and female climacteric states, K29.50 - Unspecified chronic gastritis without bleeding, E78.2 - Mixed hyperlipidemia, G25.81 - Restless legs syndrome, Z00.01 - Encounter for general adult medical examination with abnormal findings TSH reflex Free T4 03/17/23 F41.1 - Generalized anxiety disorder, G11.8 - Other hereditary ataxias, G43.909 - Migraine, unspecified, not intractable, without status migrainosus, H35.30 - Unspecified macular degeneration, N95.1 - Menopausal and female climacteric states, K29.50 - Unspecified chronic gastritis without bleeding, E78.2 - Mixed hyperlipidemia, G25.81 - Restless legs syndrome, Z00.01 - Encounter for general adult medical examination with abnormal findings Vitamin D 25-OH Total 03/17/23 F41.1 - Generalized anxiety disorder, G11.8 - Other hereditary ataxias, G43.909 - Migraine, unspecified, not intractable, without status migrainosus, H35.30 - Unspecified macular degeneration, N95.1 - Menopausal and female climacteric states, K29.50 - Unspecified chronic gastritis without bleeding, E78.2 - Mixed hyperlipidemia, G25.81 - Restless legs syndrome, Z00.01 - Encounter for general adult medical examination with abnormal findings Pap Smear 03/17/23 Z12.4 - Encounter for screening for malignant neoplasm of cervix Medications: Refilled estradiol 0.01%(0.1mg/gram) (Estrace) apply 1 applicatorful intravaginally twice a week , advise that this is a hormone , and may cause worsening of migraine 1 g vaginal 2XW 42.5 grams 1RF N95.1 - Menopausal and female climacteric states carisoprodol 350 mg PO .qd PRN 30 tabs 0RF muscle spasm Coding Level of Care Code Est Pt Prev Care 40-64y(11663) Diagnoses Annual visit for general adult medical examination with abnormal findings Z00.01 Generalized anxiety disorder F41.1 Episodic ataxia G11.8 Migraine G43.909 Macular degeneration of left eye H35.30 Vaginal dryness, menopausal N95.1 Chronic gastritis K29.50 Gastritis bleeding: without bleeding Gastritis type: unspecified gastritis Mixed dyslipidemia E78.2 Restless leg syndrome G25.81 Cervical cancer screening Z12.4
[2023-03-17 08:43] VITALS: BP 108/70; PULSE 64; O2SAT 98; BMI 22.0
== END 2023-03-17 09:45 | disposition home or self-care (01) ==
PROVIDERS: Visit Provider Internal Medicine
DX: Z00.01 Encounter for general adult medical examination with abnormal findings (principal); G11.8 Other hereditary ataxias; G43.909 Migraine, unspecified, not intractable, without status migrainosus; K29.50 Unspecified chronic gastritis without bleeding; F41.1 Generalized anxiety disorder; H35.30 Unspecified macular degeneration; N95.1 Menopausal and female climacteric states; E78.2 Mixed hyperlipidemia; G25.81 Restless legs syndrome
CPT/HCPCS: 99396

== ENCOUNTER 2023-03-17 09:29 | Outpatient (REF) | payer OTHER, SELFPAY ==
[2023-03-23 05:09] LABS: HPV mRNA E6/E7 rflx Not Detected (Not Detected)
== END 2023-03-17 09:30 | disposition home or self-care (01) ==
LOC: HO.LAB 09:29
PROVIDERS: Visit Provider Internal Medicine
DX: Z12.4 Encounter for screening for malignant neoplasm of cervix (principal); Z11.51 Encounter for screening for human papillomavirus (HPV)
CPT/HCPCS: 87624; 88142

== ENCOUNTER 2023-05-12 13:08 | Outpatient (REF) | payer OTHER, SELFPAY | END 2023-05-12 13:09 | disposition home or self-care (01) | LOC: HO.MAMMO 13:08 | PROVIDERS: PCP Internal Medicine; Visit Provider Internal Medicine | DX: Z12.31 Encounter for screening mammogram for malignant neoplasm of breast (principal) | CPT/HCPCS: 77063; 77067 ==

== ENCOUNTER → 2023-05-12 14:00 | Outpatient (BNV) | payer OTHER, SELFPAY | PROVIDERS: PCP Internal Medicine; Visit Provider Radiology Diagnostic Radiology | DX: Z12.31 Encounter for screening mammogram for malignant neoplasm of breast (principal) | CPT/HCPCS: 77063; 77067 ==

== ENCOUNTER 2023-08-20 11:53 | Outpatient (AMB) | payer SELFPAY ==
[2023-08-20 13:19] VITALS: BP 112/74; PULSE 76; TEMP 37; O2SAT 97; BMI 22.3
--- NOTE | 2023-08-20 13:19 | AM.OFFWIN_ITS ---
Intake Vital Signs 08/20/23 13:19 Height 5 ft 3 in Weight 126 lb BMI 22.3 BP 112/74 Blood Pressure Location Rt brachial Position Sitting Pulse 76 Pulse Source Pulse Oximeter Temp 98.6 F Temp Source Oral Pulse Oximetry (%) 97 Oxygen Delivery Method Room Air Intake Visit Reasons: EST/sore throat and congestion ([phone]) Intake Note: pt is here for sore throat and congestion Patient Tobacco Use Status: Former Tobacco user Allergies iodine [Iodine] Allergy (Severe, Verified 08/20/23 13:20) ANAPHYLAXIS Shellfish Allergy (Severe, Uncoded 03/17/23 08:58) ANAPHYLAXIS Qfxsvvbkfp-BHUJ-Rjnampds Allergy (Mild, Uncoded 03/17/23 08:58) stomach upset Environmental Allergy (Mild, Uncoded 03/17/23 08:58) itchy watery eyes, sneezing Medication List - Last Reconciled 08/20/23 by Rose Porter, NATASHA albuterol sulfate 90 mcg/actuation 2 puffs inhalation Q4-6H PRN amoxicillin 250 mg PO BID 5 days bupropion HCl 200 mg PO QAM carisoprodol 350 mg PO .qd PRN clonazepam 0.5 - 1 mg PO BID PRN estradiol 0.01%(0.1mg/gram) (Estrace) 1 g vaginal 2XW fluoxetine 40 mg PO DAILY fluoxetine 80 mg PO DAILY fluticasone propionate 50 mcg/actuation 1 spray intranasal DAILY gabapentin 400 mg PO TID hydroxyzine pamoate 50 - 100 mg PO BEDTIME PRN multivitamin (One-A-Day Essential tablet) 1 tab PO DAILY omega-3 fatty acids 1,000 mg PO DAILY omeprazole 40 mg PO QAM prednisone 50 mg PO DAILY 5 days topiramate 100 mg PO BID Do you need a note to return to daycare/school/sports/work: Yes PFSH Medical History Anxiety disorder Bartholin's gland cyst Calcific tendinitis of right shoulder region Cervical neck pain with evidence of disc disease Chronic gastritis Diverticulosis of colon Dysequilibrium Episodic ataxia Generalized anxiety disorder Macular degeneration of left eye Migraine Mixed dyslipidemia Restless leg syndrome Smoker Vaginal dryness, menopausal Surgical History H/O colonoscopy H/O esophagogastroduodenoscopy S/P trigger finger release Status post arthroscopy of right shoulder Family History Other No pertinent family history in first degree relatives Social History Household Members: None Housing: Apartment Alcohol intake: never Patient Tobacco Use Status: Former Tobacco user Cigarette Packs Per Day: 1 Cigarettes Per Day: 20 e-Cigarette/Vaping Use: Currently Using service: No Current occupational status: employed Current occupation: behavioral health Current occupational exposures/hazards: No Cognitive needs: No Hearing needs: No Vision needs: No Physical Exam Vital Signs: Last Vital Signs Temp 98.6 F 08/20/23 13:19 Pulse 76 08/20/23 13:19 BP 112/74 08/20/23 13:19 Pulse Ox 97 08/20/23 13:19 Oxygen Delivery Method Room Air 08/20/23 13:19 BMI result Body Mass Index 22.3 Const General: no acute distress and ill appearing (Looks uncomfortable) HEENT Head: Yes normocephalic Ears: external ears normal and TM's normal bilaterally General nose exam: Normal external nose present and Nasal discharge present Face and sinus: Yes sinus tenderness Mouth: tongue normal and moist mucous membranes Throat: Yes tonsils normal, Yes uvula midline and Yes postnasal drainage Resp Effort & Inspection: able to speak in complete sentences, abnormal respiratory pattern, audible wheezes, Actively coughing and uses accessory muscles Auscultation: rhonchi throughout and wheezes throughout Cardio Rate: regular rate Rhythm: regular rhythm Office Procedures Nebulizer Treatment Nebulizer Treatment [id number]/MDI RX initial, or Nebulizer Subsequent Treatment Office Meds ipratropium 0.5 mg-albuterol 3 mg (2.5 mg base)/3 mL nebulization soln Performing Provider: Rose Porter NP Performing Location: [facility] Administered by: Carmencita Velasquez RN on 08/20/23 14:01 Dose Route Admin Location Dispensed Lot Number Expiration Date NDC Supervisor Pig Machine 3 mL inhalation 3 mL [id number] 05/09/24 2710-3467-13 [employer] MELANY Results AMB Rapid Strep AMB Rapid Strep Negative Last Edit by Rocky Zarate CMA on 08/20/23 13 :34 Results Reviewed Results Reviewed: Laboratory Last Values Strep Scn Rapid Clinic Negative 08/20/23 13:33 Assessment & Plan Assessment & Plan (1) Acute pharyngitis: Code(s): J02.9 - Acute pharyngitis, unspecified Qualifiers: Pharyngitis/tonsillitis etiology: other specified organisms Qualified Code(s): J02.8 - Acute pharyngitis due to other specified organisms Plan: Rest and hydrate well Mild improvement with Office Tx Rxd Abx and pred (2) Upper respiratory infection: Code(s): J06.9 - Acute upper respiratory infection, unspecified Qualifiers: URI type: unspecified viral URI Qualified Code(s): J06.9 - Acute upper respiratory infection, unspecified Plan: Rest and hydrate well Mild improvement with Office Tx Rxd Abx and pred (3) Wheezing on auscultation: Code(s): R06.2 - Wheezing Plan: Rest and hydrate well Mild improvement with Office Tx Rxd Abx and pred Plan Rest and hydrate well Mild improvement with Office Tx Rxd Abx and pred Orders: Orders AMB Rapid Strep Screen Today Z13.9 - Encounter for screening, unspecified AMB Nebulizer Treatment Today J02.8 - Acute pharyngitis due to other specified organisms, J06.9 - Acute upper respiratory infection, unspecified, R06.2 - Wheezing SARS-CoV2/FLU/RSV Today J02.8 - Acute pharyngitis due to other specified organisms, J06.9 - Acute upper respiratory infection, unspecified Medications: New albuterol sulfate 90 mcg/actuation 2 puffs inhalation Q4-6H PRN 6.7 grams 0RF shortness of breath or wheezing R06.2 - Wheezing amoxicillin 250 mg PO BID 5 days 10 caps 0RF J02.8 - Acute pharyngitis due to other specified organisms, J06.9 - Acute upper respiratory infection, unspecified prednisone 50 mg PO DAILY 5 days 5 tabs 0RF Coding Level of Care Code Est Pt Level 3 (93114) Diagnoses Acute pharyngitis due to other specified organisms J02.8 Pharyngitis/tonsillitis etiology: other specified organisms Viral upper respiratory tract infection J06.9 URI type: unspecified viral URI Wheezing on auscultation R06.2 CPT Codes Nebulizer Treatment - Nebulizer Treatment, initial or subsequent: [id number] Nebulizer/MDI RX initial, or Nebulizer Subsequent Treatment ([id number]) Time Spent (min) 20
== END 2023-08-20 17:00 ==
PROVIDERS: PCP Internal Medicine; Visit Provider Nurse Practitioner Family
DX: J02.9 Acute pharyngitis, unspecified (principal); J06.9 Acute upper respiratory infection, unspecified; R06.2 Wheezing
CPT/HCPCS: 87880; 94640; 99213; J7620

== ENCOUNTER 2023-08-20 16:21 | Outpatient (REF) | payer OTHER, SELFPAY ==
[2023-08-20 17:09] LABS: Influenza A PCR NEGATIVE (Negative); Influenza B PCR NEGATIVE (Negative); Resp Syncy Virus RNA Qual PCR NEGATIVE (Negative); SARS COV2 PCR INHOUSE NEGATIVE (Negative)
== END 2023-08-20 16:22 | disposition home or self-care (01) ==
LOC: HO.LNP 16:21
PROVIDERS: Visit Provider Nurse Practitioner Family
DX: Z11.52 Encounter for screening for COVID-19 (principal); J06.9 Acute upper respiratory infection, unspecified; J02.8 Acute pharyngitis due to other specified organisms
CPT/HCPCS: 0241U

== ENCOUNTER 2023-08-24 14:43 | Outpatient (AMB) | payer SELFPAY ==
[2023-08-24 14:44] VITALS: BP 108/70; PULSE 76; TEMP 36.6; O2SAT 98; BMI 22.3
--- NOTE | 2023-08-24 14:44 | AM.OFFWIN_ITS ---
Intake Vital Signs 08/24/23 14:44 Height 5 ft 3 in Weight 126 lb BMI 22.3 BP 108/70 Blood Pressure Location Lt brachial Position Sitting Pulse 76 Pulse Source Pulse Oximeter Temp 97.9 F Temp Source Oral Pulse Oximetry (%) 98 Oxygen Delivery Method Room Air Intake Visit Reasons: EST/still not feeling well (all tests negative) Intake Note: pt is here for reevaluation, states she is not feeling better requesting alternative medication Patient Tobacco Use Status: Former Tobacco user Allergies iodine [Iodine] Allergy (Severe, Verified 08/24/23 15:19) ANAPHYLAXIS Shellfish Allergy (Severe, Uncoded 08/24/23 15:19) ANAPHYLAXIS [id number] Allergy (Mild, Uncoded 08/24/23 15:19) stomach upset Environmental Allergy (Mild, Uncoded 08/24/23 15:19) itchy watery eyes, sneezing Medication List - Last Reconciled 08/24/23 by Rafael Nguyen MD albuterol sulfate 90 mcg/actuation 2 puffs inhalation Q4-6H PRN amoxicillin 250 mg PO BID 5 days bupropion HCl 200 mg PO QAM carisoprodol 350 mg PO .qd PRN clonazepam 0.5 - 1 mg PO BID PRN estradiol 0.01%(0.1mg/gram) (Estrace) 1 g vaginal 2XW fluoxetine 40 mg PO DAILY fluoxetine 80 mg PO DAILY fluticasone propionate 50 mcg/actuation 1 spray intranasal DAILY gabapentin 400 mg PO TID hydroxyzine pamoate 50 - 100 mg PO BEDTIME PRN multivitamin (One-A-Day Essential tablet) 1 tab PO DAILY omega-3 fatty acids 1,000 mg PO DAILY omeprazole 40 mg PO QAM prednisone 50 mg PO DAILY 5 days topiramate 100 mg PO BID Do you need a note to return to daycare/school/sports/work: Yes HPI EST/still not feeling well (all tests negative) HPI Details 57 yr old female returns to the office f or a sick visit. Seen last week for a URI and was given abx, prednisone and inhalers. Still taking the abx. Reports that her sx are all not gone and requests a note for work. She also would like a covid test. [facility] Medical History Anxiety disorder Bartholin's gland cyst Calcific tendinitis of right shoulder region Cervical neck pain with evidence of disc disease Chronic gastritis Diverticulosis of colon Dysequilibrium Episodic ataxia Generalized anxiety disorder Macular degeneration of left eye Migraine Mixed dyslipidemia Restless leg syndrome Smoker Vaginal dryness, menopausal Surgical History H/O colonoscopy H/O esophagogastroduodenoscopy S/P trigger finger release Status post arthroscopy of right shoulder Family History Other No pertinent family history in first degree relatives Social History Household Members: None Housing: Apartment Alcohol intake: never Patient Tobacco Use Status: Former Tobacco user Cigarette Packs Per Day: 1 Cigarettes Per Day: 20 e-Cigarette/Vaping Use: Currently Using service: No Current occupational status: employed Current occupation: behavioral health Current occupational exposures/hazards: No Cognitive needs: No Hearing needs: No Vision needs: No Physical Exam Vital Signs: Last Vital Signs Temp 97.9 F 08/24/23 14:44 Pulse 76 08/24/23 14:44 BP 108/70 08/24/23 14:44 Pulse Ox 98 08/24/23 14:44 Oxygen Delivery Method Room Air 08/24/23 14:44 BMI result Body Mass Index 22.3 Const General: cooperative and healthy appearing Nutritional Appearance: well nourished Orientation/consciousness: patient oriented x3 Limitations: no limitations HEENT Head: Yes normal to inspection Eyes General: appearance normal, both eyes and all related structures Neck Neck: Yes normal visual inspection Chest Chest palpation & inspection: normal palpation of entire chest wall Resp Effort & Inspection: normal respiratory effort Neuro General: patient oriented x3 Assessment & Plan Assessment & Plan (1) Upper respiratory infection: Code(s): J06.9 - Acute upper respiratory infection, unspecified Plan: Change of abx not necessary. Continue medications at same dosage. Note for work given. Covid testing done. Orders: Orders [facility] Covid-19 Ag Today J06.9 - Acute upper respiratory infection, unspecified Coding Level of Care Code Est Pt Level 3 (20780) Diagnoses Upper respiratory infection J06.9
== END 2023-08-24 16:03 | disposition home or self-care (01) ==
PROVIDERS: PCP Internal Medicine; Visit Provider Internal Medicine
DX: J06.9 Acute upper respiratory infection, unspecified (principal)
CPT/HCPCS: 99213

== ENCOUNTER 2023-08-24 15:05 | Outpatient (REF) | payer OTHER, SELFPAY ==
[2023-08-24 15:27] LABS: Binax Internal Control QC Valid; Binax Now Covid-19 Ag Negative (Negative); Binax Performed by: PAULP
== END 2023-08-24 15:06 | disposition home or self-care (01) ==
LOC: HO.HMGCLDS 15:05
PROVIDERS: PCP Internal Medicine; Visit Provider Internal Medicine
DX: J06.9 Acute upper respiratory infection, unspecified (principal); Z11.52 Encounter for screening for COVID-19
CPT/HCPCS: 87811

== ENCOUNTER 2024-03-05 16:09 | Emergency (ER) | payer MEDICAID, SELFPAY ==
[2024-03-05 16:19] VITALS: BP 128/78; PULSE 95; RESP 20; TEMP 37; O2SAT 93; BMI 25.8
--- NOTE | 2024-03-05 16:22 | ED.GENADULT ---
HPI - General Adult General Chief complaint: Psychiatric Symptoms Stated complaint: SI Time Seen by Provider: 03/05/24 16:31 Source: patient Mode of arrival: ambulatory Limitations: no limitations History of Present Illness ED Provider: Dr. Ivone Allen HPI narrative: Patient comes to the emergency room reporting suicidal ideation and depression. Patient reports that last week she tried to commit suicide by overdosing with pills. Patient states that she was inpatient in [place], discharged from there. Asked to join a program in [facility] where she lives, however there was no bed available for her. Therefore she came to the ED reporting SI, patient denies HI. Related Data Home Medications ?Medication ?Instructions ?Recorded ?Confirmed fluoxetine 40 mg capsule 40 mg PO DAILY 11/14/20 03/05/24 omega-3 fatty acids 1,000 mg 1,000 mg PO DAILY 03/04/21 03/05/24 capsule bupropion HCl 200 mg tablet,12 hr 200 mg PO QAM 08/20/23 03/05/24 sustained-release clonazepam 1 mg tablet 0.5 - 1 mg PO BID PRN anxiety 08/20/23 03/05/24 duloxetine 30 mg capsule,delayed 30 mg PO DAILY 03/05/24 03/05/24 release Previous Rx's ?Medication ?Instructions ?Recorded gabapentin 400 mg capsule 400 mg PO TID #120 caps 12/23/23 omeprazole 40 mg capsule,delayed 40 mg PO QAM #90 caps 12/23/23 release carisoprodol 350 mg tablet 350 mg PO .qd PRN muscle spasm #20 02/16/24 tabs Allergies Allergy/AdvReac Type Severity Reaction Status Date / Time iodine [Iodine] Allergy Severe ANAPHYLAXIS Verified 03/05/24 16:23 Shellfish Allergy Severe ANAPHYLAXIS Uncoded 03/05/24 16:23 [id number] Allergy Mild stomach Uncoded 03/05/24 16:23 upset Environmental Allergy Mild itchy Uncoded 03/05/24 16:23 watery eyes, sneezing Review of Systems Review of Systems: Constitutional : No Weight loss, No Fever, No Chills, No Night Sweats, No Fatigue, No Malaise ENT/Mouth : No Hearing loss, No Ear Pain, No Nasal Congestion, No Sinus Pain, No Hoarseness, No sore throat, No Rhinorrhea, No Swallowing Difficulty Eyes: No Eye Pain, No Swelling, No Redness, No Foreign Body, No Discharge, No Vision Changes Cardiovascular : No Chest Pain, No SOB, No Dyspnea on Exertion, No Orthopnea, No Edema, No Palpitations Respiratory : No Cough, No Sputum, No Wheezing, No Smoke Exposure, No Dyspnea Gastrointestinal : No Nausea, No Vomiting, No Diarrhea, No Constipation, No abdominal Pain, No Hematochezia, No Melena Genitourinary : no irregular bleeding, No Dysuria, No Urinary Frequency, No Hematuria, No Urinary Incontinence, No Urgency, No Flank Pain, No Urinary Flow Changes, No Hesitancy Musculoskeletal : No joint pain, No Myalgias, No Joint Swelling Skin : No Skin Lesions, No rash Neuro : No Weakness, No Numbness, No Paresthesias, No Loss of Consciousness, No Dizziness, No Headache Psych : Complaining of depression, SI, no HI Heme/Lymph: No Bruising, No Bleeding,No Lymphadenopathy Endocrine : No Polyuria, No Polydipsia, No Temperature Intolerance PMFSH Past Medical History Medical History Vaginal dryness, menopausal Generalized anxiety disorder Episodic ataxia Macular degeneration of left eye Migraine Diverticulosis of colon Smoker Anxiety disorder Bartholin's gland cyst Calcific tendinitis of right shoulder region Chronic gastritis Mixed dyslipidemia Cervical neck pain with evidence of disc disease Restless leg syndrome Dysequilibrium Surgical History H/O colonoscopy H/O esophagogastroduodenoscopy S/P trigger finger release Status post arthroscopy of right shoulder Family History Family History Other No pertinent family history in first degree relatives Social History Social History Household Members: None Housing: Apartment Alcohol intake: never Patient Tobacco Use Status: Former Tobacco user Cigarette Packs Per Day: 1 Cigarettes Per Day: 20 Smoked in Last 30 Days: Yes e-Cigarette/Vaping Use: Currently Using Use of substances other than those prescribed or required for medical reasons: No Advance Directives: No Advance Directives Information Provided: No Do you have a plan to hurt others: No Plan Patient : No service: No Current occupational status: employed Current occupation: behavioral health Current occupational exposures/hazards: No Cognitive needs: No Hearing needs: No Vision needs: No Physical Exam ED Vital Signs: Vital Signs - 24 hr 03/05/24 16:19 03/05/24 16:30 Temperature 98.6 F Pulse Rate 95 Respiratory Rate 20 16 Blood Pressure 128/78 Pulse Oximetry 93 Oxygen Delivery Method Room Air BMI result Body Mass Index 25.8 Const Other: Appearance: Alert. Oriented X3. No acute distress. Eyes: Pupils equal, round and reactive to light. ENT: Pharynx normal. Neck: Normal inspection. Neck supple. No lymph nodes noted. No crepitus CVS: Normal heart rate and rhythm. Pulses normal. Normal S1 and S2 Respiratory: No respiratory distress. Breath sounds normal. No Wheezing. No rales Abdomen: Soft and nontender. No rigidity. No distention. Skin: Skin warm and dry. Normal skin color. Normal skin turgor. Extremities: No lower extremity edema. No Lacerations. No Rash Neuro: Oriented X 3. No motor deficit. No sensory deficit. Moving all extremities. No slurred speech. CN 2 through 12 grossly intact Psych: calm, cooperative, normal affect Course Course Course Narrative: RME: DOne by CASANDRA Varghese. 58 yold female presents to the ED for suicidal ideation and depession. Patient had suicide attempt last week. Patient is brought in by niece. Labs care team consult placed. -all of patient's labs pending -care team consult pending -physician observation started at 16:50 Medications Administered Discontinued Medications Generic Name Dose Route Start Last Admin Trade Name Karloq PRN Reason Stop Dose Admin Lorazepam 2 mg 03/05/24 16:57 03/05/24 17:00 Lorazepam 1 Mg Tablet PO 03/05/24 16:58 2 mg ONCE ONE Administration Medical Decision Making Medical Decision Making [facility] Narrative: My interpretation of labs: Hematology and chemistry no show any obvious abnormality, urinalysis positive for benzodiazepines cocaine and marijuana. Patient did receive a dose of Ativan in the ED. -20:00, care team evaluated the patient, patient is a [facility] bed search Differential Diagnosis Differential Diagnoses: The differential diagnosis associated with the presentation includes (Anxiety, depression, polysubstance abuse) Admission/Observation Consideration of admission/observation: Escalation of care including admission/observation considered (Patient is a [facility] bed search, patient under physician observation) Lab Data [facility] Lab Attestation statement: I reviewed the patient's lab results. 03/05/24 16:32 03/05/24 16:32 Labs: Lab Results 03/05/24 Range/Units 16:32 WBC 5.1 (4.8-10.8) X10*3/uL RBC 3.78 L (4.20-5.50) X10*6/uL Hgb 12.1 (12.0-16.0) g/dl Hct 36.4 L (37.0-47.0) % MCV 96.3 (80.0-98.0) fL MCH 32.0 (27.0-33.0) pg MCHC 33.2 (31.0-35.0) g/dl RDW 13.0 (11.0-16.0) % Plt Count 324 (160-400) X10*3/uL MPV 9.3 L (9.4-12.3) fL Immature Gran % (Auto) 0.4 (0.0-0.4) % Neut % (Auto) 47.4 (45-73) % Lymph % (Auto) 30.4 (20-40) % [place] % (Auto) 15.0 H (2-11) % Eos % (Auto) 6.2 H (0-4) % Baso % (Auto) 0.6 (0-2) % Lymph # (Auto) 1.6 (1.2-4.9) X10*3/uL [place] # (Auto) 0.8 (0.1-1.2) X10*3/uL Eos # (Auto) 0.3 (0.0-0.4) X10*3/uL Baso # (Auto) 0.0 (0.0-0.2) X10*3/uL Abs Immat Gran (auto) 0.02 (0.00-0.03) X10*3/uL Absolute Neuts (auto) 2.4 (2.0-8.3) x10*3/uL Absolute Nucleated RBC 0.000 (0.0-0.012) X10*3/uL Nucleated RBC % (auto) 0.0 (0.0-0.2) /100WBC Sodium 146 H (135-145) mmol/L Potassium 4.0 (3.3-5.1) mmol/L Chloride 111 H (96-108) mmol/L Carbon Dioxide 24 (22-29) mmol/L Anion Gap 15 (12-20) BUN 23 H (9-16) mg/dL Creatinine 1.11 (0.5-1.4) mg/dL Estim Creat Clear Calc 54.9 Estimated GFR 50 Random Glucose 157 H (60-115) mg/dL Calcium 9.5 (8.4-10.2) mg/dL Total Bilirubin 0.1 (0.0-1.0) mg/dL AST 13 (5-31) U/L ALT 15 (0-31) U/L Alkaline Phosphatase 103 (39-117) U/L Total Protein 7.0 (6.5-8.0) g/dL Albumin 3.9 (3.5-5.0) g/dL Urine Color Yellow Urine Appearance Hazy Urine pH 5.5 (5.0-9.0) Ur Specific Mcintosh >= 1.030 H (1.005-1.025) Urine Protein Trace (Neg-Trace) mg/dL Urine Glucose (UA) Negative (Negative) mg/dL Urine Ketones Trace (Negative) mg/dL Urine Blood Negative (Negative) Urine Nitrite Negative (Negative) Ur Leukocyte Esterase Negative (Negative) Urine Opiates Screen Not Detected (Not Detect) Ur Buprenorphine Scrn Not Detected (Not Detect) ng/mL Ur Oxycodone Screen Not Detected (Not Detect) ng/mL Urine Methadone Screen Not Detected (Not Detect) ng/mL Urine Fentanyl Screen Not Detected (Not Detect) Ur Barbiturates Screen Not Detected (Not Detect) Ur Phencyclidine Scrn Not Detected (Not Detect) Ur Amphetamines Screen Not Detected (Not Detect) U Benzodiazepines Scrn POSITIVE H (Not Detect) Urine Cocaine Screen POSITIVE H (Not Detect) U Marijuana (THC) Screen POSITIVE H (Not Detect) Ethyl Alcohol < 10 mg/dL Critical Care Time Critical Care Time Critical Care Time: Yes Total Critical Care Time: 30 Attestation: I have personally provided critical care time. Time includes review of lab data, radiology results, discussion with consultants, and monitoring for potential decompensation. Intervention performed as documented. Discharge Plan Discharge Clinical Impression: Depression, Suicidal ideation, Polysubstance abuse Patient Disposition: Still a Patient Prescriptions: No Action omeprazole 40 mg capsule,delayed release(/EC) 40 mg PO QAM Qty: 90 1RF gabapentin 400 mg capsule 400 mg PO TID Qty: 120 6RF Rx Instructions: 1 cap in AM, 2 cap at noon, 1 QHS carisoprodol 350 mg tablet 350 mg PO .qd PRN (Reason: muscle spasm) Qty: 20 0RF duloxetine 30 mg capsule,delayed release(DR/EC) 30 mg PO DAILY omega-3 fatty acids 1,000 mg capsule 1,000 mg PO DAILY fluoxetine 40 mg capsule 40 mg PO DAILY clonazepam 1 mg tablet 0.5 - 1 mg PO BID PRN (Reason: anxiety) bupropion HCl 200 mg tablet sustained-release 12 hr 200 mg PO QAM Interventions: [place]-Suicide Risk Severity Scale Last Done: 03/05/24 16:30 Print Language: Maltese
[2024-03-05 16:30] VITALS: RESP 16
[2024-03-05] MEDS: LORazepam 1 MG TABLET 2 MG PO (17:00)
--- NOTE | 2024-03-05 17:03 | PC.NURSE ---
Genie comes in today via the waiting room, patient reports that she is having thoughts of SI and attempted to overdose on a pill (unknown what) about two days prior to arrival. She denies any specific events leading up to her taking the pill. Patient reports that she has been having some increasing external life stressors but was unwilling to elaborate. She denies plan to harm herself at this time but does continue to endorse SI. denies HI/AH/VH. She also reports increased anxiety and is requesting medications. Patient is alert and oriented x4, skin pwd, respirations even and unlabored, no apparent distress is noted at this time. patient medicated per MAR and is now sleeping
[2024-03-05 17:07] LABS: Appearance Urine Hazy; Color Urine Yellow; Glucose Urine UA Negative (Negative); Leukocyte Esterase Urine Negative (Negative); Nitrite Urine Negative (Negative); PH 5.5 (5.0-9.0); Specific Gravity - Urine >= 1.030 (1.005-1.025); Urine Blood Negative (Negative); Urine Ketones Trace mg/dL (Negative); Urine Protein Trace mg/dL (Neg-Trace)
[2024-03-05 17:20] LABS: Amphetamine Screen Urine Not Detected (Not Detect); Barbiturates, Urine Not Detected (Not Detect); Benzodiazepines Screen Urine POSITIVE (Not Detect); Buprenorphine Scr Not Detected (Not Detect); Cocaine Screen Urine POSITIVE (Not Detect); Fentanyl, urine Not Detected (Not Detect); Methadone Screen, Urine Not Detected (Not Detect); Opiate Screen Urine Not Detected (Not Detect); Oxycodone Screen Urine Not Detected (Not Detect); Phencyclidine Screen Urine Not Detected (Not Detect)
[2024-03-05 17:33] LABS: Cannabinoid Screen Urine POSITIVE (Not Detect)
[2024-03-05 18:30] LABS: MANUAL DIFF FLAG NO
[2024-03-05 18:36] LABS: Basophils Percent Auto 0.6 % (0-2); Eosinophils Absolute Auto 0.3 X10*3/uL (0.0-0.4); Eosinophils Percent Auto 6.2 % (0-4); Hematocrit 36.4 % (37.0-47.0); Hemoglobin 12.1 g/dl (12.0-16.0); Imm Gran Abs Auto 0.02 X10*3/uL (0.00-0.03); Imm Gran Pct Auto 0.4 % (0.0-0.4); Lymphocytes Absolute Auto 1.6 X10*3/uL (1.2-4.9); Lymphocytes Percent Auto 30.4 % (20-40); Mean Corpuscular HGB Conc 33.2 g/dl (31.0-35.0); Mean Corpuscular Volume 96.3 fL (80.0-98.0); Mean Platelet Volume 9.3 fL (9.4-12.3); Monocytes Absolute Auto 0.8 X10*3/uL (0.1-1.2); Neutrophils Absolute Auto 2.4 x10*3/uL (2.0-8.3); Neutrophils Percent Auto 47.4 % (45-73); Platelet Count 324 X10*3/uL (160-400); Red Blood Count 3.78 X10*6/uL (4.20-5.50); White Blood Count 5.1 X10*3/uL (4.8-10.8)
[2024-03-05 18:48] LABS: Alanine Aminotransferase 15 U/L (0-31); Albumin Level 3.9 g/dL (3.5-5.0); Alkaline Phosphatase 103 U/L (39-117); Anion Gap 15 (12-20); Aspartate Amino Transferase 13 U/L (5-31); Bilirubin Total 0.1 mg/dL (0.0-1.0); Blood Urea Nitrogen 23 mg/dL (9-16); Calcium 9.5 mg/dL (8.4-10.2); Carbon Dioxide 24 mmol/L (22-29); Chloride 111 mmol/L (96-108); Creatinine Clr Calc Pharmacy 54.9; Estimated Glomerular Filt Rate 50; Ethanol < 10 mg/dL; Glucose Random 157 mg/dL (60-115); Sodium 146 mmol/L (135-145)
[2024-03-05] MEDS: Gabapentin 400 MG CAPSULE PO (20:40)
--- NOTE | 2024-03-05 20:40 | PC.NURSE ---
pt calm, talking with staff, pt medicated with nightly meds per order
--- NOTE | 2024-03-05 21:21 | PC.NURSE ---
this rn assumed care of pt, pt resting in stretcher, no acute distress noted, respirations even and unlabored.
[2024-03-06 06:18] VITALS: BP 113/62; PULSE 60; RESP 18; TEMP 36.9; O2SAT 98
[2024-03-06] MEDS: Omeprazole 40 MG CAPSULE.DR PO (06:26)
--- NOTE | 2024-03-06 06:28 | PC.NURSE ---
pt medicated per mar, tolerated well with water.
--- NOTE | 2024-03-06 06:50 | PC.NURSE ---
Assumed car of patient at 0645. Patient is observed resting in their room. No distress observed and breathing is even and unlabored.
--- NOTE | 2024-03-06 08:39 | MHC.CARE ---
Contacted Pt's insuranc [employer] [place] for auth for [facility]S level of care. T/W was told to contact [facility] at for the auth. A message was left for a pre certification for respite as that was the only available option. Waiting for return call. [facility] will not accept Pt without auth. [facility] was contacted and confirmed all information for referral was submitted and phone screening is complete. They are just waiting for auth from us.
[2024-03-06] MEDS: DULoxetine HCl 30 MG CAPSULE.DR PO (10:29)
[2024-03-06] MEDS: Gabapentin 400 MG CAPSULE PO (10:29)
[2024-03-06 11:27] VITALS: BP 113/62; PULSE 60; RESP 18; TEMP 36.9; O2SAT 98
== END 2024-03-06 11:30 | disposition home or self-care (01) ==
PROVIDERS: Emergency Provider Emergency Medicine; PCP Internal Medicine
DX: F33.1 Major depressive disorder, recurrent, moderate (principal); R45.851 Suicidal ideations; F14.10 Cocaine abuse, uncomplicated; F12.10 Cannabis abuse, uncomplicated; Z79.899 Other long term (current) drug therapy; Z87.891 Personal history of nicotine dependence
CPT/HCPCS: 36415; 80053; 80307; 81003; 85025; 99285; S9485

== ENCOUNTER 2024-03-15 08:52 | Outpatient (AMB) | payer OTHER, SELFPAY ==
[2024-03-15 09:29] VITALS: BP 112/60; PULSE 75; O2SAT 98; BMI 20.7
--- NOTE | 2024-03-15 09:29 | A.OFFPC_ITS ---
Vital Signs 03/15/24 09:29 Height 5 ft 6 in Weight 128 lb BMI 20.7 BP 112/60 Blood Pressure Location Lt brachial Position Sitting Pulse 75 Pulse Source Pulse Oximeter Pulse Oximetry (%) 98 Oxygen Delivery Method Room Air Intake Visit Reasons: d/c [facility] Intake Note: Pt is here today d/c [facility] hosp and SI. Intentional overdose Allergies iodine [Iodine] Allergy (Severe, Verified 03/15/24 10:16) ANAPHYLAXIS Shellfish Allergy (Severe, Uncoded 03/15/24 10:16) ANAPHYLAXIS Ybmtwztkrk-NEMI-Okscperp Allergy (Mild, Uncoded 03/15/24 10:16) stomach upset Environmental Allergy (Mild, Uncoded 03/15/24 10:16) itchy watery eyes, sneezing Medication List - Last Reconciled 03/15/24 by Fabiana Rae MD clonazepam 0.5 - 1 mg PO BID PRN duloxetine 60 mg PO DAILY gabapentin 400 mg PO TID pantoprazole 40 mg PO DAILY Tobacco use date assessed: 03/15/24 Dental Screening Dental Screen Date: 03/15/24 Did you have a dental visit in the last 12 months?: Yes Did you have a dental problem in the last 6 months where you did not have access to dental care?: Yes Was dental information given to patient?: Patient has dentist HPI d/c [facility] HPI Details 58-year-old lady here today for follow-u p after recent ER visit and admission from inpatient at [facility]. She presented to the emergency room reporting suicidal ideation and depression. She states that she was admitted at [facility] after she tried to commit suicide by overdosing with pills. Patient states that she was inpatient in [place], discharged from there. She wanted to join a program in [facility] where she lives, however there was no bed available for her. Therefore she came to the ED reporting SI, patient denies HI. At present patient states that she has been taking medications that she was prescribed, denies any suicidal ideations at present time. She already has an appointment for intake at the day program at [place], and escitalopram of psychiatric appointment on 04/06/2024 at 11:00 . Currently taking duloxetine, clona zepam, continued on gabapentin and on pantoprazole, states that she has been feeling better on these medications.. Requesting an FMLA application to be filled out today. [facility] Medical History (Updated 03/17/24 @ 17:33 by Fabiana Rae MD) Bipolar disorder current episode depressed Vaginal dryness, menopausal Episodic ataxia Macular degeneration of left eye Migraine Diverticulosis of colon Smoker Anxiety disorder Bartholin's gland cyst Calcific tendinitis of right shoulder region Chronic gastritis Mixed dyslipidemia Cervical neck pain with evidence of disc disease Restless leg syndrome Dysequilibrium Surgical History H/O esophagogastroduodenoscopy H/O colonoscopy S/P trigger finger release Status post arthroscopy of right shoulder Family History Other No pertinent family history in first degree relatives Social History Household Members: None Housing: Apartment Alcohol intake: never Patient Tobacco Use Status: Former Tobacco user Cigarette Packs Per Day: 1 Cigarettes Per Day: 20 e-Cigarette/Vaping Use: Currently Using service: No Current occupational status: unemployed Current occupation: behavioral health Current occupational exposures/hazards: No Cognitive needs: No Hearing needs: No Vision needs: No Questionnaire PHQ-9 Over the last 2 weeks, how often have you been bothered by any of the following problems? 1. Little interest or pleasure in doing things: not at all 2. Feeling down, depressed, or hopeless: not at all 3. Trouble falling or staying asleep, or sleeping too much: not at all 4. Feeling tired or having little energy: not at all 5. Poor appetite or overeating: not at all 6. Feeling bad about yourself - or that you are a failure or have let yourself or your family down: not at all 7. Trouble concentrating on things, such as reading the newspaper or watching television: not at all 8. Moving or speaking so slowly that other people could have noticed. Or the opposite - being so fidgety or restless that you have been moving around a lot more than usual: not at all 9. Thoughts that you would be better off or of hurting yourself in some way: not at all Total score: 0 Depression Screening Interpretation: Negative (Currently on medication for depression, has appointment for the day program and psychiatry scheduled) Depression Screening Done: Yes Source: Developed by Drs. Pio Gama, Eleanor Ortega, Ismael Harris and colleagues, with an educational olegario from [employer]. Thrive Questionnaire Date Thrive assessed: 03/15/24 I am a: Patient What is your living situation today?: I have a steady place to live Within the past 12 months, did the food you bought not last and you didn't have the money to get more?: Often true Within the past 12 months, did you worry whether your food would run out before you got money to buy more?: Often true Do you have trouble paying for medicines?: Yes Do you have trouble getting transportation to medical appointments?: Yes Do you have trouble paying your heating and electricity bill?: Yes Do you have trouble taking care of your child, family member or friend?: No Do you have trouble with day-to-day activities such as bathing, preparing meals, shopping, managing finances, etc.?: No Are you currently unemployed and looking for a job?: No Are you interested in more education?: I choose not to answer this question Please select the resources that you would like help with: Housing/Penitentiary Currently or been in a relationship where the following occur: I choose not to answer THRIVE Score: 4 AUDIT C Alcohol Use Questionnaire (AUDIT-C) 1. How often do you have a drink containing alcohol?: Monthly or less 2. How many drinks containing alcohol do you have on a typical day when you are drinking?: 1 or 2 3. How often do you have six or more drinks on one occasion?: Never Total Score: 1 SAMMIE-7 AMB Questionnaire SAMMIE-7 Date SAMMIE - 7 assessed: 03/15/24 Feeling nervous, anxious, or on edge: 0 = Not at all Not being able to stop or control worryin = Several days Worrying too much about different things: 1 = Several days Trouble relaxin = Several days Being so restless that it is hard to sit still: 1 = Several days Becoming easily annoyed or irritable: 1 = Several days Feeling afraid as if something awful might happen: 1 = Several days Total SAMMIE-7 score (0-4 normal; 5-9 mild; 10-14 moderate; 15-21 severe): 6 Source: Developed by Drs. Pio Gama, Eleanor Ortega, Ismael Harris and colleagues, with an educational olegario from [employer]. SAMMIE-7 Assessment Billing SAMMIE-7 Assessment Tool: SAMMIE-7 Assessment 87025 Review of Systems Const Reports fatigue, Denies fever(s) and Denies weakness ENT Denies dysphagia, Denies otalgia, Denies nasal congestion and Reports post nasal drip Card Denies chest pain at rest, Denies chest pain with activity, Denies leg edema and Denies palpitations Resp Reports no additional complaints and Denies wheezing GI Denies abdominal pain, Denies hematochezia, Denies change in bowel habits, Denies dysphagia and Reports heartburn ( improved with PPI and avoidance of culprits) Denies hematuria, Denies dysuria, Denies urinary incontinence and Denies urinary hesitancy Musc Reports abnormal gait (occasional), Reports arthralgias, Denies muscle cramps, Denies muscle weakness, Reports radiating pain into limb, Reports stiffness and Reports tingling Neuro Reports abnormal gait (occasional), Reports lack of coordination (occasional), Denies convulsions, Denies Sensory deficit (Neuro), Reports tingling, Reports paresthesias and Denies weakness Psych Reports as per HPI, Reports difficulty concentrating, Reports anhedonia, Denies tactile hallucinations, Denies homicidal ideation and Denies suicidal ideation Endo Denies cold intolerance, Reports fatigue, Denies polyphagia, Denies polydipsia, Denies polyuria and Denies palpitations Donnie/Lymph Denies easy bleeding and Denies easy bruising Aller/Immun Denies seasonal rhinorrhea and Denies wheezing Physical exam (Primary Care) Vital Signs: Last Vital Signs Pulse 75 03/15/24 09:29 BP 112/60 03/15/24 09:29 Pulse Ox 98 03/15/24 09:29 Oxygen Delivery Method Room Air 03/15/24 09:29 BMI result Body Mass Index 20.7 Tobacco/Smoking Status: Tobacco use Status Tobacco use date assessed 03/15/24 03/15/24 09:37 Patient Tobacco Use Status Former Tobacco user 03/15/24 09:37 Tobacco use type 03/17/23 09:30 e-Cigarette/Vaping Use Currently Using 03/15/24 09:37 PHQ-9: PHQ-9 Score PHQ-9: Total score 0 03/17/24 17:17 Depression Screening Interpretation: Negative (Currently on medication for depression, has appointment for the day program and psychiatry scheduled) Thrive Assessment: Date of Thrive Assessment Date Thrive assessed 03/15/24 03/15/24 09:37 Currently or been in a relationship where the following occur: I choose not to answer Const Other: Alert oriented x3, no acute distress noted in the gait Orientation/consciousness: patient oriented x3 HENMT Head: Yes normocephalic Ears: TM's normal bilaterally and EAC's normal General nose exam: Normal external nose present Face and sinus: Yes face symmetric Mouth: Normal oral and palatal mucosa present and moist mucous membranes Eyes General: appearance normal, both eyes and all related structures Neck Neck: Yes full ROM, Yes no lymphadenopathy and Yes supple Resp Auscultation: clear to auscultation bilaterally Cardio Rate: regular rate Rhythm: regular rhythm Heart sounds: S1 normal heart sound present GI Palpation (GI): Soft to palpation, nontender and no guarding Speculum Exam - Cervix: normal appearance of the cervix Back/Spine/Pelvis Back: No back tenderness Skin General skin exam: no rashes or lesions noted Neuro General: patient oriented x3, gait normal, tone normal, moves all extremities, Normal light touch and pain sensation, no focal motor deficits and CN's II-XI intact bilaterally Sensory Exam: No Sensory deficit (Neuro) Extrem General: Yes full ROM, Yes no joint enlargement, Yes no pedal edema and Yes normal gait Psych Appearance: grossly normal and well kempt Mental Status: mental status grossly normal Speech and movement: Slowed movement present (Neuro) Affect: Depressed mood present Attitude: cooperative Thought process: Normal thought process present Thought content: Normal thought content present, suicidality and no homicidality Assessment and Plan Assessment & Plan (1) Bipolar disorder current episode depressed: Code(s): F31.30 - Bipolar disorder, current episode depressed, mild or moderate severity, unspecified Qualifiers: Current episode severity: moderate Qualified Code(s): F31.32 - Bipolar disorder, current episode depressed, moderate Plan: Currently on the duloxetine and clonazepam taken as needed, she has contacted [facility] and has an appointment already scheduled with Psychiatrist- Regina Kirkland on 04/06 at 11:00 a.m. and has an appt with therapist Marina on 03/16 at 11:00 a.m. (2) Acid reflux: Comment: Continue PPI, avoid culprits to include nicotine. Code(s): K21.9 - Gastro-esophageal reflux disease without esophagitis Plan: Continue with pantoprazole (3) Cervical neck pain with evidence of disc disease: Code(s): M50.90 - Cervical disc disorder, unspecified, unspecified cervical region Plan: Continue gabapentin Medications: Refilled gabapentin 1 cap in AM, 2 cap at noon, 1 QHS 400 mg PO TID 120 caps 1RF Coding Level of Care Code Est Pt Level 4 (78641) Complex EM visit Add On G2211 Diagnoses Bipolar affective disorder, currently depressed, moderate F31.32 Current episode severity: moderate Acid reflux K21.9 Cervical neck pain with evidence of disc disease M50.90 Additional Codes SAMMIE-7 Assessment Billing - SAMMIE-7 Assessment Tool: SAMMIE-7 Assessment 20892 ([id number])
== END 2024-03-15 11:12 | disposition home or self-care (01) ==
PROVIDERS: PCP Internal Medicine; Visit Provider Internal Medicine
DX: K21.9 Gastro-esophageal reflux disease without esophagitis (principal); F31.32 Bipolar disorder, current episode depressed, moderate; M50.90 Cervical disc disorder, unspecified, unspecified cervical region
CPT/HCPCS: 99214; G2211

== ENCOUNTER 2024-06-06 16:35 | Inpatient (IN) | payer MEDICAID, OTHER, SELFPAY ==
--- NOTE | ~2024-06-06 | CT_ITS ---
EXAMINATION: CT HEAD WITHOUT CONTRAST CLINICAL INFORMATION: Altered mental status. COMPARISON: CT head from 01/11/2019. Brain MRI from 02/04/2019. TECHNIQUE: Contiguous axial imaging was performed from the skull base to vertex without intravenous administration of contrast. This CT examination was performed using dose optimization techniques as appropriate, variously including the following: *Automated exposure control. *Adjustment of mA and/or kV according to patient size (this includes techniques or standardized protocols for targeted exams where dose is matched to indication/reason for exam; i.e. extremities or head). *Use of iterative reconstruction technique. DLP: 563 mGy-cm FINDINGS: There is no evidence of acute intracranial hemorrhage or edematous territorial infarction. Meyers-white matter differentiation is preserved. Scattered and partially confluent hypoattenuation in the periventricular and deep white matter are consistent with mild to moderate microangiopathy. Prominent perivascular space caudal to the right lentiform nucleus. The ventricles are normal in morphology and size. No evidence for obstructive hydrocephalus. No abnormal mass effect or midline shift. No extra-axial fluid collections. Calcific atherosclerotic disease of the intracranial internal carotid and vertebral arteries. No hyperdense vessel sign. No acute soft tissue or osseous abnormalities. Moderate mucosal thickening of the paranasal sinuses. The mastoid air cells and middle ear cavities are clear. Advanced degenerative arthropathy of the temporomandibular joints. CT/CT head/brain wo IV con IMPRESSION: 1. No evidence of acute intracranial hemorrhage or edematous territorial infarction. 2. Mild to moderate underlying microangiopathy and generalized cerebral volume loss. Electronically signed by: Abhishek Jenkins DO 06/08/2024 01:21 AM EDT
[2024-06-06 16:39] VITALS: BP 157/83; PULSE 100; RESP 19; TEMP 36.6; O2SAT 94; BMI 22.9
[2024-06-06 16:57] LABS: MANUAL DIFF FLAG NO
[2024-06-06 17:00] LABS: Basophils Absolute Auto 0.1 X10*3/uL (0.0-0.2); Basophils Percent Auto 0.5 % (0-2); Eosinophils Absolute Auto 0.2 X10*3/uL (0.0-0.4); Eosinophils Percent Auto 1.7 % (0-4); Hemoglobin 13.3 g/dl (12.0-16.0); Imm Gran Abs Auto 0.06 X10*3/uL (0.00-0.03); Imm Gran Pct Auto 0.4 % (0.0-0.4); Lymphocytes Absolute Auto 2.1 X10*3/uL (1.2-4.9); Lymphocytes Percent Auto 14.9 % (20-40); Mean Corpuscular HGB Conc 34.1 g/dl (31.0-35.0); Mean Corpuscular Hemoglobin 32.4 pg (27.0-33.0); Mean Corpuscular Volume 95.1 fL (80.0-98.0); Mean Platelet Volume 9.3 fL (9.4-12.3); Monocytes Absolute Auto 1.2 X10*3/uL (0.1-1.2); Monocytes Percent Auto 8.2 % (2-11); Neutrophils Absolute Auto 10.6 x10*3/uL (2.0-8.3); Neutrophils Percent Auto 74.3 % (45-73); Platelet Count 324 X10*3/uL (160-400); White Blood Count 14.3 X10*3/uL (4.8-10.8)
[2024-06-06 17:13] LABS: Appearance Urine Clear; Color Urine Yellow; Glucose Urine UA Negative (Negative); Leukocyte Esterase Urine Negative (Negative); Nitrite Urine Negative (Negative); PH 5.5 (5.0-9.0); Urine Blood Negative (Negative); Urine Ketones Negative (Negative); Urine Protein Negative (Neg-Trace)
[2024-06-06 17:23] LABS: Amphetamine Screen Urine POSITIVE (Not Detect); Barbiturates, Urine Not Detected (Not Detect); Benzodiazepines Screen Urine Not Detected (Not Detect); Buprenorphine Scr Not Detected (Not Detect); Cannabinoid Screen Urine Not Detected (Not Detect); Cocaine Screen Urine POSITIVE (Not Detect); Fentanyl, urine Not Detected (Not Detect); Methadone Screen, Urine Not Detected (Not Detect); Opiate Screen Urine Not Detected (Not Detect); Oxycodone Screen Urine Not Detected (Not Detect); Phencyclidine Screen Urine Not Detected (Not Detect)
[2024-06-06 17:27] LABS: Acetaminophen LAB < 3 mcg/mL (<30); Alanine Aminotransferase 19 U/L (0-31); Albumin Level 4.3 g/dL (3.5-5.0); Alkaline Phosphatase 107 U/L (39-117); Anion Gap 14 (12-20); Aspartate Amino Transferase 21 U/L (5-31); Bilirubin Direct < 0.2 mg/dL (0.0-0.5); Bilirubin Total 0.1 mg/dL (0.0-1.0); Blood Urea Nitrogen 18 mg/dL (9-16); Calcium 9.5 mg/dL (8.4-10.2); Carbon Dioxide 24 mmol/L (22-29); Chloride 106 mmol/L (96-108); Creatinine Clr Calc Pharmacy 51.4; Estimated Glomerular Filt Rate > 60; Ethanol 28 mg/dL; Glucose Random 82 mg/dL (60-115); Lipase 19 U/L (8-78); Magnesium 1.7 mg/dL (1.6-2.6); Potassium 3.6 mmol/L (3.3-5.1); Salicylate < 5.0 mg/dL (15-30); Sodium 140 mmol/L (135-145); Total Protein 7.9 g/dL (6.5-8.0)
[2024-06-06] MEDS: clonazePAM 1 MG TABLET PO ×2 (17:49→20:53)
--- NOTE | 2024-06-06 18:19 | ED.GENADULT ---
HPI - General Adult General Chief complaint: Psychiatric Symptoms Stated complaint: SI Time Seen by Provider: 06/06/24 17:45 Source: patient, RN notes reviewed and old records reviewed Mode of arrival: ambulatory Limitations: no limitations History of Present Illness ED Provider: Nery LITTLEJOHN narrative: 58 old female with a past medical history significant for bipolar disorder, macular degeneration, restless leg syndrome, depression presents for evaluation of suicidal ideation. Patient reports increasing suicidal thoughts for about 1 month She reports some life stressors including difficulties with a car purchase but otherwise can not think of any specific reason why she has been feeling suicidal The patient states that she had thoughts of slitting her neck 2 weeks ago She reports that most of the day she just lays in bed by herself and has no interaction with anybody She has no current plan for suicidality She reports being compliant with her medications She has no somatic complaints at this time Related Data Home Medications ?Medication ?Instructions ?Recorded ?Confirmed bupropion HCl 200 mg tablet,12 hr 200 mg PO QAM 06/06/24 06/06/24 sustained-release clonazepam 1 mg tablet 0.5 - 1 mg PO BID PRN anxiety 06/06/24 06/06/24 fluoxetine 40 mg capsule 80 mg PO DAILY 06/06/24 06/06/24 gabapentin 400 mg capsule 400 mg PO TID 06/06/24 06/06/24 omeprazole 20 mg capsule,delayed 20 mg PO DAILY 06/06/24 06/06/24 release Allergies Allergy/AdvReac Type Severity Reaction Status Date / Time iodine [Iodine] Allergy Severe ANAPHYLAXIS Verified 06/06/24 16:42 Shellfish Allergy Severe ANAPHYLAXIS Uncoded 06/06/24 16:42 Czrqbvhpsv-MWKE-Dxislxeh Allergy Mild stomach Uncoded 06/06/24 16:42 upset Environmental Allergy Mild itchy Uncoded 06/06/24 16:42 watery eyes, sneezing Review of Systems Constitutional: Constitutional: Denies body ache(s), Denies chills, Denies fever(s) and Denies headache(s) Eyes: Eyes: Denies blurry vision ENT: Denies vertigo, Denies dizziness and Denies headache(s) Cardiovascular: Cardiovascular: Denies chest pain and Denies dyspnea Respiratory: Respiratory: Denies cough and Denies dyspnea Gastrointestinal: Gastrointestinal: Denies abdominal pain, Denies nausea and Denies vomiting Musculoskeletal: Musculoskeletal: Denies back pain Integumentary/Breasts: Skin/Breast: Denies rash Neurologic: Denies vertigo, Denies dizziness and Denies headache(s) Psychiatric: Psychiatric: Reports abnormal sleep pattern, Reports anxiety, Reports depression, Reports hopelessness, Reports anhedonia and Reports suicidal ideation [facility] Past Medical History Medical History (Updated 06/06/24 @ 18:23 by Zaid Gabriel) Bipolar disorder current episode depressed Vaginal dryness, menopausal Episodic ataxia Macular degeneration of left eye Migraine Diverticulosis of colon Smoker Anxiety disorder Bartholin's gland cyst Calcific tendinitis of right shoulder region Chronic gastritis Mixed dyslipidemia Cervical neck pain with evidence of disc disease Restless leg syndrome Dysequilibrium Surgical History H/O esophagogastroduodenoscopy H/O colonoscopy S/P trigger finger release Status post arthroscopy of right shoulder Family History Family History Other No pertinent family history in first degree relatives Social History Social History Household Members: None Housing: Apartment Alcohol intake: never Patient Tobacco Use Status: Former Tobacco user Cigarette Packs Per Day: 1 Cigarettes Per Day: 20 e-Cigarette/Vaping Use: Currently Using Advance Directives: No Advance Directives Information Provided: No Do you have a plan to hurt others: No Plan service: No Current occupational status: unemployed Current occupation: behavioral health Current occupational exposures/hazards: No Cognitive needs: No Hearing needs: No Vision needs: No Physical Exam ED Vital Signs: Vital Signs - 24 hr 06/06/24 16:39 Temperature 98 F Pulse Rate 100 Respiratory Rate 19 Blood Pressure 157/83 H Pulse Oximetry 94 BMI result Body Mass Index 22.9 Const General: healthy appearing, comfortable, no acute distress, alert and awake Nutritional Appearance: well nourished Orientation/consciousness: patient oriented x3 HENMT Head: Yes normocephalic and Yes atraumatic Eyes Eyelids: Yes eyelids normal Conjunctivae: conjunctivae normal Sclerae: sclerae normal Corneas: corneas normal Pupils: Equal, round and reactive pupils present EOM: EOMs intact bilaterally Neck Neck: Yes full ROM Resp Effort & Inspection: normal respiratory effort, able to speak in complete sentences and not labored Cardio Rate: regular rate Rhythm: regular rhythm GI Inspection: No distended Palpation (GI): Soft to palpation, not firm, nontender, no guarding and not rigid Skin General skin exam: elasticity normal Neuro General: patient oriented x3 Cranial nerves: Yes Equal, round and reactive pupils present and Yes Bilaterally intact EOM present Cognition (Neuro): normal cognition Extrem Other: Moving all extremities well without any obvious deformities Psych Appearance: grossly normal Mental Status: mental status grossly normal Speech and movement: Normal speech and movement present Affect: normal affect Attitude: cooperative Thought process: Normal thought process present Thought content: Suicidality present Insight: Good insight present (Psych) Judgement: Fair judgement present (Psych) Medications Administered Discontinued Medications Generic Name Dose Route Start Last Admin Trade Name Freq PRN Reason Stop Dose Admin Clonazepam 1 mg 06/06/24 17:46 06/06/24 17:49 Clonazepam 1 Mg Tablet PO 06/06/24 17:47 1 mg ONCE ONE Administration Medical Decision Making Medical Decision Making [facility] Narrative: 58-year-old female presents for evaluation depression with suicidal ideation. She admits to cocaine abuse which may be contributing to increasing depression. The patient is calm and cooperative. She is medically cleared for care team evaluation. Differential Diagnosis Differential Diagnoses: The differential diagnosis associated with the presentation includes Depression Suicidal ideation Polysubstance abuse Drug-induced psychosis Lab Data [facility] Lab Attestation statement: I reviewed the patient's lab results. The patient does have a leukocytosis to 14.3, this may be related to cocaine abuse. There was no anemia, normal platelet count. No significant electrolyte abnormalities 06/06/24 16:52 06/06/24 16:52 Labs: Lab Results 06/06/24 06/06/24 Range/Units 16:52 17:04 WBC 14.3 H (4.8-10.8) X10*3/uL RBC 4.10 L (4.20-5.50) X10*6/uL Hgb 13.3 (12.0-16.0) g/dl Hct 39.0 (37.0-47.0) % MCV 95.1 (80.0-98.0) fL MCH 32.4 (27.0-33.0) pg MCHC 34.1 (31.0-35.0) g/dl RDW 12.0 (11.0-16.0) % Plt Count 324 (160-400) X10*3/uL MPV 9.3 L (9.4-12.3) fL Immature Gran % (Auto) 0.4 (0.0-0.4) % Neut % (Auto) 74.3 H (45-73) % Lymph % (Auto) 14.9 L (20-40) % [place] % (Auto) 8.2 (2-11) % Eos % (Auto) 1.7 (0-4) % Baso % (Auto) 0.5 (0-2) % Lymph # (Auto) 2.1 (1.2-4.9) X10*3/uL [place] # (Auto) 1.2 (0.1-1.2) X10*3/uL Eos # (Auto) 0.2 (0.0-0.4) X10*3/uL Baso # (Auto) 0.1 (0.0-0.2) X10*3/uL Abs Immat Gran (auto) 0.06 H (0.00-0.03) X10*3/uL Absolute Neuts (auto) 10.6 H (2.0-8.3) x10*3/uL Absolute Nucleated RBC 0.000 (0.0-0.012) X10*3/uL Nucleated RBC % (auto) 0.0 (0.0-0.2) /100WBC Sodium 140 (135-145) mmol/L Potassium 3.6 (3.3-5.1) mmol/L Chloride 106 (96-108) mmol/L Carbon Dioxide 24 (22-29) mmol/L Anion Gap 14 (12-20) BUN 18 H (9-16) mg/dL Creatinine 0.92 (0.5-1.4) mg/dL Estim Creat Clear Calc 51.4 Estimated GFR > 60 Random Glucose 82 (60-115) mg/dL Calcium 9.5 (8.4-10.2) mg/dL Magnesium 1.7 (1.6-2.6) mg/dL Total Bilirubin 0.1 (0.0-1.0) mg/dL Direct Bilirubin < 0.2 (0.0-0.5) mg/dL AST 21 (5-31) U/L ALT 19 (0-31) U/L Alkaline Phosphatase 107 (39-117) U/L Total Protein 7.9 (6.5-8.0) g/dL Albumin 4.3 (3.5-5.0) g/dL Lipase 19 (8-78) U/L Urine Color Yellow Urine Appearance Clear Urine pH 5.5 (5.0-9.0) Ur Specific [place] 1.020 (1.005-1.025) Urine Protein Negative (Neg-Trace) mg/dL Urine Glucose (UA) Negative (Negative) mg/dL Urine Ketones Negative (Negative) mg/dL Urine Blood Negative (Negative) Urine Nitrite Negative (Negative) Ur Leukocyte Esterase Negative (Negative) Salicylates < 5.0 L (15-30) mg/dL Urine Opiates Screen Not Detected (Not Detect) Ur Buprenorphine Scrn Not Detected (Not Detect) ng/mL Ur Oxycodone Screen Not Detected (Not Detect) ng/mL Urine Methadone Screen Not Detected (Not Detect) ng/mL Urine Fentanyl Screen Not Detected (Not Detect) Acetaminophen < 3 (<30) mcg/mL Ur Barbiturates Screen Not Detected (Not Detect) Ur Phencyclidine Scrn Not Detected (Not Detect) Ur Amphetamines Screen POSITIVE H (Not Detect) U Benzodiazepines Scrn Not Detected (Not Detect) Urine Cocaine Screen POSITIVE H (Not Detect) U Marijuana (THC) Screen Not Detected (Not Detect) Ethyl Alcohol 28 mg/dL Discharge Plan Discharge Clinical Impression: Depression with suicidal ideation Patient Disposition: Still a Patient Prescriptions: No Action fluoxetine 40 mg capsule 80 mg PO DAILY gabapentin 400 mg capsule 400 mg PO TID clonazepam 1 mg tablet 0.5 - 1 mg PO BID PRN (Reason: anxiety) omeprazole 20 mg capsule,delayed release(DR/EC) 20 mg PO DAILY bupropion HCl 200 mg tablet sustained-release 12 hr 200 mg PO QAM Print Language: [place] Arabian
[2024-06-06] MEDS: Gabapentin 400 MG CAPSULE PO (20:53)
[2024-06-06] MEDS: hydrOXYzine HCL 50 MG TABLET PO (23:18)
--- NOTE | 2024-06-07 | ECG_ITS ---
Test Reason : QTC Blood Pressure : / mmHG Vent. Rate : 048 BPM Atrial Rate : 048 BPM P-R Int : 154 ms QRS Dur : 088 ms QT Int : 462 ms P-R-T Axes : 043 017 037 degrees QTc Int : 412 ms Sinus bradycardia Otherwise normal ECG When compared with ECG of 11-JAN-2019 16:12, No significant change was found Referred By: Gilberto Pena Electronically Signed By:RADHA BARR
[2024-06-07 06:00] VITALS: BP 131/71; PULSE 60; RESP 16; TEMP 36.8; O2SAT 98
--- NOTE | 2024-06-07 06:27 | PC.NURSE ---
Patient slept through the night, no distress observed/reported, no behavior and safety concerns, disposition per care team is section-12 inpatient bed search, VSS, meds and meals compliant, will continue to monitor
--- NOTE | 2024-06-07 07:08 | PC.NURSE ---
Assumed care of patient at 0645, patient appears to be sleeping, respirations even and unlabored, no apparent distress noted. Continue plan of care for inpatient bedsearch
[2024-06-07] MEDS: Gabapentin 400 MG CAPSULE PO ×3 (08:14→20:45)
[2024-06-07] MEDS: Omeprazole 20 MG CAPSULE.DR PO (08:14)
[2024-06-07] MEDS: buPROPion HCl XL 150 MG TAB.ER.24H PO (08:15)
[2024-06-07] MEDS: FLUoxetine HCl 20 MG CAPSULE 80 MG PO (08:15)
[2024-06-07] MEDS: clonazePAM 1 MG TABLET PO (09:08)
--- NOTE | 2024-06-07 12:21 | PHA.MEDREC ---
Addendum entered by Patrizia Mitchell [facility] 06/07/24 13:43: Reviewed by [facility] Addendum entered by Tc Tamayo 06/07/24 13:40: Spoke to patient nurse in pod she states patient told her she takes it 1 tab @0800, 1 tab @1200 and 1 tab @2000. Addendum entered by Tc Tamayo 06/07/24 13:37: Noticed in Med rec Gabapentin 400mg tabs were inputted TID and in claims we had it 1 tab in the morning 2 tabs at noon and 1 tab at bedtime. Updated that in med rec Original Note: Pharmacy Consult ? Medication Reconciliation Pharmacy reviewed med rec done by nursing. Med list confirmed matched what we have in claims.
[2024-06-07 16:41] VITALS: BMI 22.3
[2024-06-07 17:34] VITALS: BP 128/70; PULSE 74; RESP 16; TEMP 36.4; O2SAT 97
--- NOTE | 2024-06-07 18:00 | PC.ADMIT ---
This is the 1st admsision for this 58 y.o. woman to this [facility] at [facility]. Referred by [facility] Care Team with Dx of Unspecified Bipolar D/O. Nurse to nurse done prior to admission with [facility] ED Pod. Arrived on unit at 1640 and placed on 5 min safety checks. Admission orders received from Jennifer Pete, provider. Med reconciliation done while in ED. Medical issues: pt reports crackly crunchy bones related to arthritis. Tox screen positive for amphetamines and cocaine. Initially reported that she had not used Cocaine for 20 yrs prior to this use and she is prescribed amphetamines. When feedback given that she was positive 03/05/24 for cocaine and she was not prescribed amphetamines stated, Ok that was the last time and amphetamines must have been in my cocaine this time. Precipitating events to admission: Self presented to [facility] ED with increased depression and passive SI. Denies SI/HI currently, denies AH, reports VH of shadows. Restless and disorganization noted during admission process. Unsteadiness noted at times due to impulsivity with movements. Declined to sit during admission process, preferring to stand. Rocked back and forth frequently, picked at multiple things in treatment room, requiring cueing not to. Signed ex-'s name to consents, requiring cueing to sign own name. 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
[2024-06-07 20:00] VITALS: BP 133/70; PULSE 89; RESP 16; RESP 17; TEMP 36.6; O2SAT 96
[2024-06-07] MEDS: traZODone HCL 100 MG TABLET PO ×2 (20:45→23:15)
[2024-06-07] MEDS: Acetaminophen 325 MG TABLET 650 MG PO (20:50)
[2024-06-07] MEDS: hydrOXYzine HCL 25 MG TABLET PO (20:50)
[2024-06-08] MEDS: Omeprazole 20 MG CAPSULE.DR PO (06:39)
[2024-06-08 07:00] VITALS: BMI 21.4
[2024-06-08 08:00] VITALS: BP 149/65; PULSE 71; RESP 16; TEMP 36.8; O2SAT 98
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
[2024-06-08] MEDS: FLUoxetine HCl 20 MG CAPSULE 80 MG PO (09:10)
[2024-06-08] MEDS: Gabapentin 400 MG CAPSULE PO ×4 (09:10→20:03)
[2024-06-08] MEDS: clonazePAM 1 MG TABLET PO (09:11)
[2024-06-08 09:28] LABS: Estimated Average Glucose 100 mg/dL; Hemoglobin A1C 107.2234 umol/L; Hemoglobin A1c % 5.1 % (<6.0); Total Hemoglobin (HGBA1C) 3295.7708 umol/L
[2024-06-08 10:03] LABS: Folate 10.6 ng/mL (> or = 4.0); Vitamin B12 401 pg/mL (200-900)
--- NOTE | 2024-06-08 13:03 | MHC.CLN ---
RE: CONSULT PT REPORTS 40# WT OSS IN 4 MONTHS PREVIOUS WT HX REVEALS: CURRENT WT 55KG (06/07/24) PREVIOUS WT 56KG (03/17/23) PT REMAINS STABLE AND WITHIN UBW RANGE X 14 MONTHS NO SIGNIFICANT WT CHANGES CONTINUE CURRENT CARE PLAN
[2024-06-08] MEDS: Fluticasone Propionate Nasal 16 GM SPRAY 1 SPRAY NOSTRIL-B (15:23)
[2024-06-08] MEDS: Acetaminophen 325 MG TABLET 650 MG PO (15:26)
[2024-06-08] MEDS: Flu Vacc TS2024-25(6mos up)/PF 0.5 ML SYRINGE IM (17:53)
[2024-06-08 20:00] VITALS: RESP 17
[2024-06-08] MEDS: traZODone HCL 100 MG TABLET PO (20:04)
[2024-06-08] MEDS: hydrOXYzine HCL 25 MG TABLET PO (20:04)
[2024-06-09 00:57] LABS: Alanine Aminotransferase 15 U/L (0-31); Albumin Level 4.1 g/dL (3.5-5.0); Alkaline Phosphatase 102 U/L (39-117); Anion Gap 13 (12-20); Aspartate Amino Transferase 21 U/L (5-31); Bilirubin Total 0.3 mg/dL (0.0-1.0); Blood Urea Nitrogen 17 mg/dL (9-16); Calcium 10.2 mg/dL (8.4-10.2); Carbon Dioxide 24 mmol/L (22-29); Chloride 107 mmol/L (96-108); Cholesterol 251 mg/dL (<200); Creatinine Clr Calc Pharmacy 52.5; Estimated Glomerular Filt Rate > 60; Glucose Fasting 97 mg/dL (60-99); HDL Cholesterol 49 mg/dL (>40); LDL Cholesterol Calculated 169 mg/dL (<100); Potassium 4.1 mmol/L (3.3-5.1); Sodium 140 mmol/L (135-145); Total Protein 7.3 g/dL (6.5-8.0); Triglycerides 166 mg/dL (<150)
[2024-06-09 01:35] LABS: Thyroid Stimulating Hormone 1.62 uIU/mL (0.32-4.0)
[2024-06-09 08:00] VITALS: BP 132/69; PULSE 67; RESP 16; TEMP 36.4; O2SAT 93
[2024-06-09] MEDS: FLUoxetine HCl 20 MG CAPSULE 80 MG PO (08:55)
[2024-06-09] MEDS: Omeprazole 20 MG CAPSULE.DR PO (08:56)
[2024-06-09] MEDS: Gabapentin 400 MG CAPSULE PO ×2 (08:56→20:59)
[2024-06-09] MEDS: Fluticasone Propionate Nasal 16 GM SPRAY 1 SPRAY NOSTRIL-B ×2 (08:57→20:59)
[2024-06-09] MEDS: clonazePAM 1 MG TABLET PO ×2 (10:51→22:47)
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
--- NOTE | 2024-06-09 11:40 | PC.NURSE ---
Genie (Parisa) came out of her room and approached the medical front desk specialist to report that she had just self-harmed her wrist using a plastic toothbrush lucero. Precipitants of this self-harming gesture was feeling hopeless, thinking the groups here on [facility] are all play and no discussions , and feeling lonely. R Wrist was assessed and a superficially scratched reddened area was noticed. Area was not bleeding. Area was washed with soap and water and antibiotic ointment was applied, as well as bandage. Parisa was also placed on 1:1 staff observation until she is able to contract for safety and utilize her coping skills effectively. Parisa was given PRN medication for anxiety, and was provided with psycho-educational worksheets for self-discovery and coping skills education. Parisa agreed to have frequent check-ins with this telegraphic typewriter repairer to discuss feelings and progress with psycho-educational materials. Parisa's room was stripped off of any potentially sharp objects and her belongings are now being kept behind the nurse's station until further notice.
[2024-06-09] MEDS: Acetaminophen 325 MG TABLET 650 MG PO ×2 (12:16→22:46)
[2024-06-09] MEDS: Gabapentin 400 MG CAPSULE 800 MG PO (12:17)
[2024-06-09] MEDS: hydrOXYzine HCL 25 MG TABLET PO ×2 (13:54→20:59)
[2024-06-09 20:00] VITALS: BP 110/80; PULSE 103; RESP 18; TEMP 36.7; O2SAT 95
[2024-06-09] MEDS: traZODone HCL 100 MG TABLET PO (20:59)
[2024-06-09] MEDS: OLANZapine 2.5 MG TABLET PO (20:59)
[2024-06-10] MEDS: Omeprazole 20 MG CAPSULE.DR PO (06:40)
[2024-06-10 08:00] VITALS: BP 110/59; PULSE 64; RESP 18; TEMP 36.6; O2SAT 99
--- NOTE | 2024-06-10 08:06 | P.PNPSI_ITS ---
Subjective Subjective Date of Service: 06/10/24 Reason For Visit: SI Interim History: The nursing staff reported the patient is anxious and flat and restless at times. Slept 5 hours last night. This morning is sleeping alot. Did not engage in interview with food writer. Medication Compliance: Yes Side effects from medications: No Attending Groups: No Review of Systems Acute medical concerns: No Review of Systems Review of Systems unremarkable Mental Status Exam Mental Status Exam Narrative: Sleeping and did not engage in interview. Fair self care Diagnostics Vital Signs (24Hr): Vital Signs - 24 hr 06/09/24 20:00 Temperature 98.1 F Pulse Rate 103 H Respiratory Rate 18 Blood Pressure 110/80 Pulse Oximetry 95 Oxygen Delivery Method Room Air BMI result Body Mass Index 21.4 Labs 06/06/24 16:52 06/08/24 09:04 Labs: Laboratory Results - last 48 hr 06/08/24 09:04 Sodium 140 Potassium 4.1 Chloride 107 Carbon Dioxide 24 Anion Gap 13 BUN 17 H Creatinine 0.90 Estim Creat Clear Calc 52.5 Estimated GFR > 60 Fasting Glucose 97 Estimat Average Glucose 100 Hemoglobin A1c % 5.1 Calcium 10.2 D Total Bilirubin 0.3 AST 21 ALT 15 Alkaline Phosphatase 102 Total Protein 7.3 Albumin 4.1 Triglycerides 166 H Cholesterol 251 H LDL Cholesterol, Calc 169 H HDL Cholesterol 49 Vitamin B12 401 Folate 10.6 TSH 1.62 Imaging Radiology Impressions: ITS Impressions Head CT 06/07/24 20:29 IMPRESSION: 1. No evidence of acute intracranial hemorrhage or edematous territorial infarction. 2. Mild to moderate underlying microangiopathy and generalized cerebral volume loss. Electronically signed by: Abhishek Jenkins DO 06/08/2024 01:21 AM EDT Medications Medications Current Medications Acetaminophen (Acetaminophen 325 Mg Tablet) 650 mg PO Q6H PRN PRN Reason: Headache/Pain Mild Scale (1-3) Last Admin: 06/09/24 22:46 Dose: 650 mg Al Hydroxide/Mg Hydroxide (Magnesium Hydrox/Alum Hydrox 30 Ml Oral.Susp) 30 ml PO Q6H PRN PRN Reason: Heartburn/Nausea Clonazepam (Clonazepam 1 Mg Tablet) 1 mg PO BID PRN PRN Reason: anxiety Last Admin: 06/09/24 22:47 Dose: 1 mg Fluoxetine HCl (Fluoxetine Hcl 20 Mg Capsule) 80 mg PO DAILY [facility] Last Admin: 06/09/24 08:55 Dose: 80 mg Fluticasone Propionate (Fluticasone Propionate Nasal 16 Gm [place]) 1 spray NOSTRIL-B BID [facility] Last Admin: 06/09/24 20:59 Dose: 1 spray Gabapentin (Gabapentin 400 Mg Capsule) 400 mg PO BID@0830,2030 [facility] Last Admin: 06/09/24 20:59 Dose: 400 mg Gabapentin (Gabapentin 400 Mg Capsule) 800 mg PO DAILY@1230 [facility] Last Admin: 06/09/24 12:17 Dose: 800 mg Hydroxyzine HCl (Hydroxyzine Hcl 25 Mg Tablet) 25 mg PO Q6H PRN PRN Reason: Anxiety Last Admin: 06/09/24 20:59 Dose: 25 mg Magnesium Hydroxide (Milk Of Magnesia 30 Ml Oral.Susp) 30 ml PO DAILY PRN PRN Reason: Constipation Nicotine (Nicotine 21 Mg Patch.Td24) 21 mg TRANSDERMA DAILY PRN PRN Reason: nicotine cravings Olanzapine (Olanzapine 2.5 Mg Tablet) 2.5 mg PO BEDTIME [facility] Last Admin: 06/09/24 20:59 Dose: 2.5 mg Omeprazole (Omeprazole 20 Mg Capsule.Dr) 20 mg PO DAILY@0630 [facility] Last Admin: 06/10/24 06:40 Dose: 20 mg Trazodone HCl (Trazodone Hcl 100 Mg Tablet) 100 mg PO BEDTIME PRN PRN Reason: Insomnia Last Admin: 06/09/24 20:59 Dose: 100 mg Allergies Allergies Allergy/AdvReac Type Severity Reaction Status Date / Time iodine [Iodine] Allergy Severe ANAPHYLAXIS Verified 06/06/24 16:42 Shellfish Allergy Severe ANAPHYLAXIS Uncoded 06/06/24 16:42 [id number] Allergy Mild stomach Uncoded 06/06/24 16:42 upset Environmental Allergy Mild itchy Uncoded 06/06/24 16:42 watery eyes, sneezing Assessment & Plan Assessment & Plan (1) Bipolar disorder current episode depressed: Qualifiers: Current episode severity: moderate Qualified Code(s): F31.32 - Bipolar disorder, current episode depressed, moderate Status: Acute Code(s): F31.30 - Bipolar disorder, current episode depressed, mild or moderate severity, unspecified (2) Cocaine use disorder: Status: Acute Code(s): F14.10 - Cocaine abuse, uncomplicated Plan The patient is a middle-aged female with a past history of bipolar disorder was noncompliant with medications for 1 month and relapsed on her depressive symptoms with suicidal ideation. Also she came positive to cocaine and she stated that she relapsed after 20 years but it is doubtful since she had another positive cocaine on 02/26/2024 when she was admitted at [facility]. She denies suicidal thoughts at this moment and she is able to contract for safety but she reports that she is extremely depressed. Plan 1. Gather collateral information. We are going to try to contact her providers at [facility]. 2. Continue with mood stabilizers. 3. Blood work. 4. Continue with recommendations from the medical team. 5. 15 minute checks since the patient is able to contract for safety. On June 09 we changed to one-to-one since she was self-harming. 6. Reassessment with results. 7. Add Zyprexa 2.5 p.o. q.h.s. on June 09 to target mood lability. 06/10/24: no changes. Noted recent addition of zyprexa Reason for continued inpatient stay Substantial Risk for: inability to function Time Spent With Patient Time: Total time managing care of this patient today ____ minutes.
[2024-06-10] MEDS: FLUoxetine HCl 20 MG CAPSULE 80 MG PO (08:29)
[2024-06-10] MEDS: Gabapentin 400 MG CAPSULE PO ×2 (08:30→20:53)
[2024-06-10] MEDS: Fluticasone Propionate Nasal 16 GM SPRAY 1 SPRAY NOSTRIL-B ×2 (08:30→20:53)
[2024-06-10] MEDS: Gabapentin 400 MG CAPSULE 800 MG PO (12:05)
[2024-06-10] MEDS: hydrOXYzine HCL 25 MG TABLET PO ×2 (12:29→17:09)
[2024-06-10] MEDS: Acetaminophen 325 MG TABLET 650 MG PO (14:35)
[2024-06-10] MEDS: clonazePAM 1 MG TABLET PO (17:09)
[2024-06-10] MEDS: OLANZapine 5 MG TABLET PO (17:29)
[2024-06-10 20:00] VITALS: BP 127/65; PULSE 62; RESP 18; TEMP 36; O2SAT 97
[2024-06-10] MEDS: OLANZapine 2.5 MG TABLET PO (20:53)
[2024-06-10] MEDS: traZODone HCL 100 MG TABLET PO (20:53)
[2024-06-11] MEDS: Omeprazole 20 MG CAPSULE.DR PO (06:13)
[2024-06-11] MEDS: Acetaminophen 325 MG TABLET 650 MG PO (06:14)
[2024-06-11 08:05] VITALS: BP 107/64; PULSE 71; RESP 18; TEMP 36.6; O2SAT 99
[2024-06-11] MEDS: Gabapentin 400 MG CAPSULE PO ×2 (08:36→21:40)
[2024-06-11] MEDS: FLUoxetine HCl 20 MG CAPSULE 80 MG PO (08:36)
[2024-06-11] MEDS: Fluticasone Propionate Nasal 16 GM SPRAY 1 SPRAY NOSTRIL-B ×2 (08:37→21:42)
--- NOTE | 2024-06-11 10:21 | P.PNPSI_ITS ---
Subjective Subjective Date of Service: 06/11/24 Reason For Visit: SI Interim History: The nursing staff reported the patient is anxious and flat and restless at times. 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 Endorses anxiety but also eager for partial hospital program and discharge plamning. Trazodone helpful for sleep Medication Compliance: Yes Side effects from medications: No Attending Groups: Yes Review of Systems Acute medical concerns: No Review of Systems Review of Systems unremarkable Mental Status Exam Mental Status Exam Patient Appearance: Appropriate Patient Orientation: Person and Situation Level of Consciousness: Awake and Appropriate Patient Behavior: Guarded and Passive Mood Description: Anxious Affect Description: Anxious Patient Cognition Impaired: Yes Ability to Follow Directions: Good Speech Pattern: Clear Diagnostics Vital Signs (24Hr): Vital Signs - 24 hr 06/10/24 20:00 06/11/24 08:05 Temperature 96.8 F 97.9 F Pulse Rate 62 71 Respiratory Rate 18 18 Blood Pressure 127/65 107/64 Pulse Oximetry 97 99 Oxygen Delivery Method Room Air Room Air BMI result Body Mass Index 21.4 Labs 06/06/24 16:52 06/08/24 09:04 Imaging Radiology Impressions: ITS Impressions Head CT 06/07/24 20:29 IMPRESSION: 1. No evidence of acute intracranial hemorrhage or edematous territorial infarction. 2. Mild to moderate underlying microangiopathy and generalized cerebral volume loss. Electronically signed by: Abhishek Jenkins DO 06/08/2024 01:21 AM EDT Medications Medications Current Medications Acetaminophen (Acetaminophen 325 Mg Tablet) 650 mg PO Q6H PRN PRN Reason: Headache/Pain Mild Scale (1-3) Last Admin: 06/11/24 06:14 Dose: 650 mg Al Hydroxide/Mg Hydroxide (Magnesium Hydrox/Alum Hydrox 30 Ml Oral.Susp) 30 ml PO Q6H PRN PRN Reason: Heartburn/Nausea Clonazepam (Clonazepam 1 Mg Tablet) 1 mg PO BID PRN PRN Reason: anxiety Last Admin: 06/10/24 17:09 Dose: 1 mg Fluoxetine HCl (Fluoxetine Hcl 20 Mg Capsule) 80 mg PO DAILY [facility] Last Admin: 06/11/24 08:36 Dose: 80 mg Fluticasone Propionate (Fluticasone Propionate Nasal 16 Gm [place]) 1 spray NOSTRIL-B BID [facility] Last Admin: 06/11/24 08:37 Dose: 1 spray Gabapentin (Gabapentin 400 Mg Capsule) 400 mg PO BID@0830,2030 [facility] Last Admin: 06/11/24 08:36 Dose: 400 mg Gabapentin (Gabapentin 400 Mg Capsule) 800 mg PO DAILY@1230 [facility] Last Admin: 06/10/24 12:05 Dose: 800 mg Hydroxyzine HCl (Hydroxyzine Hcl 25 Mg Tablet) 25 mg PO Q6H PRN PRN Reason: Anxiety Last Admin: 06/10/24 17:09 Dose: 25 mg Magnesium Hydroxide (Milk Of Magnesia 30 Ml Oral.Susp) 30 ml PO DAILY PRN PRN Reason: Constipation Nicotine (Nicotine 21 Mg Patch.Td24) 21 mg TRANSDERMA DAILY PRN PRN Reason: nicotine cravings Olanzapine (Olanzapine 2.5 Mg Tablet) 2.5 mg PO BEDTIME [facility] Last Admin: 06/10/24 20:53 Dose: 2.5 mg Olanzapine (Olanzapine 5 Mg Tablet) 5 mg PO Q6H PRN PRN Reason: agitation Last Admin: 06/10/24 17:29 Dose: 5 mg Omeprazole (Omeprazole 20 Mg Capsule.Dr) 20 mg PO DAILY@0630 [facility] Last Admin: 06/11/24 06:13 Dose: 20 mg Trazodone HCl (Trazodone Hcl 100 Mg Tablet) 100 mg PO BEDTIME PRN PRN Reason: Insomnia Last Admin: 06/10/24 20:53 Dose: 100 mg Allergies Allergies Allergy/AdvReac Type Severity Reaction Status Date / Time iodine [Iodine] Allergy Severe ANAPHYLAXIS Verified 06/06/24 16:42 Shellfish Allergy Severe ANAPHYLAXIS Uncoded 06/06/24 16:42 [id number] Allergy Mild stomach Uncoded 06/06/24 16:42 upset Environmental Allergy Mild itchy Uncoded 06/06/24 16:42 watery eyes, sneezing Assessment & Plan Assessment & Plan (1) Bipolar disorder current episode depressed: Qualifiers: Current episode severity: moderate Qualified Code(s): F31.32 - Bipolar disorder, current episode depressed, moderate Status: Acute Code(s): F31.30 - Bipolar disorder, current episode depressed, mild or moderate severity, unspecified (2) Cocaine use disorder: Status: Acute Code(s): F14.10 - Cocaine abuse, uncomplicated Plan The patient is a middle-aged female with a past history of bipolar disorder was noncompliant with medications for 1 month and relapsed on her depressive symptoms with suicidal ideation. Also she came positive to cocaine and she stated that she relapsed after 20 years but it is doubtful since she had another positive cocaine on 02/26/2024 when she was admitted at [facility]. She denies suicidal thoughts at this moment and she is able to contract for safety but she reports that she is extremely depressed. Plan 1. Gather collateral information. We are going to try to contact her providers at [facility]. 2. Continue with mood stabilizers. 3. Blood work. 4. Continue with recommendations from the medical team. 5. 15 minute checks since the patient is able to contract for safety. On June 09 we changed to one-to-one since she was self-harming. 6. Reassessment with results. 7. Add Zyprexa 2.5 p.o. q.h.s. on June 09 to target mood lability. 06/10/24: no changes. Noted recent addition of zyprexa 06/11/24: scheduled trazodone 100mg. Eager for PHP Reason for continued inpatient stay Substantial Risk for: rapid decompensation Time Spent With Patient Time: Total time managing care of this patient today ____ minutes.
[2024-06-11] MEDS: hydrOXYzine HCL 25 MG TABLET PO ×2 (10:34→17:34)
[2024-06-11] MEDS: Gabapentin 400 MG CAPSULE 800 MG PO (12:17)
[2024-06-11] MEDS: clonazePAM 1 MG TABLET PO (12:22)
[2024-06-11] MEDS: OLANZapine 5 MG TABLET PO (17:34)
[2024-06-11 20:00] VITALS: BP 106/58; PULSE 65; RESP 16; TEMP 36.4; O2SAT 97
[2024-06-11] MEDS: OLANZapine 2.5 MG TABLET PO (21:40)
[2024-06-11] MEDS: traZODone HCL 100 MG TABLET PO (21:41)
[2024-06-12] MEDS: Omeprazole 20 MG CAPSULE.DR PO (06:19)
[2024-06-12 08:30] VITALS: BP 147/72; PULSE 70; RESP 18; TEMP 36; O2SAT 100
[2024-06-12] MEDS: Acetaminophen 325 MG TABLET 650 MG PO ×2 (09:05→18:05)
[2024-06-12] MEDS: FLUoxetine HCl 20 MG CAPSULE 80 MG PO (09:07)
[2024-06-12] MEDS: Gabapentin 400 MG CAPSULE PO ×2 (09:08→21:24)
[2024-06-12] MEDS: Fluticasone Propionate Nasal 16 GM SPRAY 1 SPRAY NOSTRIL-B ×2 (09:09→21:25)
[2024-06-12] MEDS: clonazePAM 1 MG TABLET PO ×2 (09:11→16:03)
[2024-06-12] MEDS: Gabapentin 400 MG CAPSULE 800 MG PO (12:45)
[2024-06-12] MEDS: hydrOXYzine HCL 25 MG TABLET PO (12:58)
--- NOTE | 2024-06-12 14:59 | P.PNPSI_ITS ---
Subjective Subjective Date of Service: 06/12/24 Reason For Visit: SI Subjective Notes: Conditional Voluntary and 3 Day Interim History: The nursing staff reported that the patient had been visible in the unit, med compliant labile at times she slept 6 hours. On interview the patient denies new symptoms she agreed to increase her Zyprexa at night. Mental Status Exam Mental Status Exam Patient Appearance: Well Grooomed and Appropriate Patient Orientation: Person and Situation Level of Consciousness: Awake and Appropriate Patient Behavior: Guarded and Passive Mood Description: Calm and Constricted Affect Description: Constricted Patient Cognition Impaired: Yes Ability to Follow Directions: Good Speech Pattern: Clear Hallucinations: None Delusions: Ideas of Reference Thought Process: Distracted and Slowed Thinking Thought Content: positive for [place] and positive for Poverty of Content Judgement: Poor Diagnostics Vital Signs (24Hr): Vital Signs - 24 hr 06/11/24 20:00 06/12/24 08:30 Temperature 97.6 F 96.8 F Pulse Rate 65 70 Respiratory Rate 16 18 Blood Pressure 106/58 L 147/72 H Pulse Oximetry 97 100 Oxygen Delivery Method Room Air Room Air BMI result Body Mass Index 21.4 Labs 06/06/24 16:52 06/08/24 09:04 Imaging Radiology Impressions: ITS Impressions Head CT 06/07/24 20:29 IMPRESSION: 1. No evidence of acute intracranial hemorrhage or edematous territorial infarction. 2. Mild to moderate underlying microangiopathy and generalized cerebral volume loss. Electronically signed by: Abhishek Jenkins DO 06/08/2024 01:21 AM EDT Medications Medications Current Medications Acetaminophen (Acetaminophen 325 Mg Tablet) 650 mg PO Q6H PRN PRN Reason: Headache/Pain Mild Scale (1-3) Last Admin: 06/12/24 09:05 Dose: 650 mg Al Hydroxide/Mg Hydroxide (Magnesium Hydrox/Alum Hydrox 30 Ml Oral.Susp) 30 ml PO Q6H PRN PRN Reason: Heartburn/Nausea Clonazepam (Clonazepam 1 Mg Tablet) 1 mg PO BID PRN PRN Reason: anxiety Last Admin: 06/12/24 09:11 Dose: 1 mg Fluoxetine HCl (Fluoxetine Hcl 20 Mg Capsule) 80 mg PO DAILY [facility] Last Admin: 06/12/24 09:07 Dose: 80 mg Fluticasone Propionate (Fluticasone Propionate Nasal 16 Gm [place]) 1 spray NOSTRIL-B BID [facility] Last Admin: 06/12/24 09:09 Dose: 1 spray Gabapentin (Gabapentin 400 Mg Capsule) 400 mg PO BID@0830,2030 [facility] Last Admin: 06/12/24 09:08 Dose: 400 mg Gabapentin (Gabapentin 400 Mg Capsule) 800 mg PO DAILY@1230 [facility] Last Admin: 06/12/24 12:45 Dose: 800 mg Hydroxyzine HCl (Hydroxyzine Hcl 25 Mg Tablet) 25 mg PO Q6H PRN PRN Reason: Anxiety Last Admin: 06/12/24 12:58 Dose: 25 mg Magnesium Hydroxide (Milk Of Magnesia 30 Ml Oral.Susp) 30 ml PO DAILY PRN PRN Reason: Constipation Nicotine (Nicotine 21 Mg Patch.Td24) 21 mg TRANSDERMA DAILY PRN PRN Reason: nicotine cravings Olanzapine (Olanzapine 5 Mg Tablet) 5 mg PO Q6H PRN PRN Reason: agitation Last Admin: 06/11/24 17:34 Dose: 5 mg Olanzapine (Olanzapine 5 Mg Tablet) 5 mg PO BEDTIME [facility] Omeprazole (Omeprazole 20 Mg Capsule.Dr) 20 mg PO DAILY@0630 [facility] Last Admin: 06/12/24 06:19 Dose: 20 mg Trazodone HCl (Trazodone Hcl 100 Mg Tablet) 100 mg PO BEDTIME [facility] Last Admin: 06/11/24 21:41 Dose: 100 mg Allergies Allergies Allergy/AdvReac Type Severity Reaction Status Date / Time iodine [Iodine] Allergy Severe ANAPHYLAXIS Verified 06/06/24 16:42 Shellfish Allergy Severe ANAPHYLAXIS Uncoded 06/06/24 16:42 [id number] Allergy Mild stomach Uncoded 06/06/24 16:42 upset Environmental Allergy Mild itchy Uncoded 06/06/24 16:42 watery eyes, sneezing Assessment & Plan Assessment & Plan (1) Bipolar disorder current episode depressed: Qualifiers: Current episode severity: moderate Qualified Code(s): F31.32 - Bipolar disorder, current episode depressed, moderate Status: Acute Code(s): F31.30 - Bipolar disorder, current episode depressed, mild or moderate severity, unspecified (2) Cocaine use disorder: Status: Acute Code(s): F14.10 - Cocaine abuse, uncomplicated Plan The patient is a middle-aged female with a past history of bipolar disorder was noncompliant with medications for 1 month and relapsed on her depressive symptoms with suicidal ideation. Also she came positive to cocaine and she stated that she relapsed after 20 years but it is doubtful since she had another positive cocaine on 02/26/2024 when she was admitted at [facility]. She denies suicidal thoughts at this moment and she is able to contract for safety but she reports that she is extremely depressed. Plan 1. Gather collateral information. We are going to try to contact her providers at [facility]. 2. Continue with mood stabilizers. 3. Blood work. 4. Continue with recommendations from the medical team. 5. 15 minute checks since the patient is able to contract for safety. On June 09 we changed to one-to-one since she was self-harming. 6. Reassessment with results. 7. Add Zyprexa 2.5 p.o. q.h.s. on June 09 to target mood lability. She agreed increase up to 5 mg on June 12. 8. Discharge for tomorrow since she signed a 3 day notice Reason for continued inpatient stay Substantial Risk for: inability to function, rapid decompensation and med/psych decompensation Time Spent With Patient Time: Total time managing care of this patient today __20__ minutes.
[2024-06-12] MEDS: OLANZapine 5 MG TABLET PO ×2 (16:03→21:24)
[2024-06-12 20:00] VITALS: BP 110/58; PULSE 76; RESP 16; TEMP 36.2; O2SAT 96
[2024-06-12] MEDS: traZODone HCL 100 MG TABLET PO (21:24)
[2024-06-13] MEDS: Omeprazole 20 MG CAPSULE.DR PO (05:48)
--- NOTE | 2024-06-13 08:13 | PM.PSYDC ---
DS: Providers Provider Date of Service: 06/13/24 Date of admission: 06/07/24 15:24 Date of discharge: 06/13/24 Primary care physician: Fabiana Rae MD DS: Diagnosis Discharge Diagnosis (1) Bipolar disorder current episode depressed: Status: Acute (2) Cocaine use disorder: Status: Acute DS: Medications Discharge Medications Home Medications: Home Medications ?Medication ?Instructions ?Recorded ?Confirmed bupropion HCl 200 mg tablet,12 hr 200 mg PO DAILY 06/06/24 06/07/24 sustained-release clonazepam 1 mg tablet 0.5 - 1 mg PO BID PRN anxiety 06/06/24 06/06/24 fluoxetine 40 mg capsule 80 mg PO DAILY 06/06/24 06/06/24 gabapentin 400 mg capsule 400 mg PO DAILY@0800,1200,2000 06/06/24 06/07/24 omeprazole 20 mg capsule,delayed 20 mg PO DAILY 06/06/24 06/06/24 release Mental Status Exam Mental Status Exam Patient Appearance: Well Grooomed and Appropriate Patient Orientation: Person, Place and Situation Level of Consciousness: Awake and Appropriate Patient Behavior: Appropriate and Cooperative Mood Description: Calm Affect Description: Constricted Patient Cognition Impaired: Yes Ability to Follow Directions: Good Speech Pattern: Clear Hallucinations: None Delusions: Not Present Thought Process: Distracted and Slowed Thinking Thought Content: positive for [place] and positive for Circumstantial Judgement: Fair Data Data Completed and Pending Completed studies during hospitalization [Text1]: 06/06/24 06/06/24 06/08/24 16:52 17:04 09:04 WBC 14.3 H RBC 4.10 L Hgb 13.3 Hct 39.0 MCV 95.1 MCH 32.4 MCHC 34.1 RDW 12.0 Plt Count 324 MPV 9.3 L Immature Gran % (Auto) 0.4 Neut % (Auto) 74.3 H Lymph % (Auto) 14.9 L [place] % (Auto) 8.2 Eos % (Auto) 1.7 Baso % (Auto) 0.5 Lymph # (Auto) 2.1 [place] # (Auto) 1.2 Eos # (Auto) 0.2 Baso # (Auto) 0.1 Abs Immat Gran (auto) 0.06 H Absolute Neuts (auto) 10.6 H Absolute Nucleated RBC 0.000 Nucleated RBC % (auto) 0.0 Sodium 140 140 Potassium 3.6 4.1 Chloride 106 107 Carbon Dioxide 24 24 Anion Gap 14 13 BUN 18 H 17 H Creatinine 0.92 0.90 Estim Creat Clear Calc 51.4 52.5 Estimated GFR > 60 > 60 Random Glucose 82 Fasting Glucose 97 Estimat Average Glucose 100 Hemoglobin A1c % 5.1 Calcium 9.5 10.2 D Magnesium 1.7 Total Bilirubin 0.1 0.3 Direct Bilirubin < 0.2 AST 21 21 ALT 19 15 Alkaline Phosphatase 107 102 Total Protein 7.9 7.3 Albumin 4.3 4.1 Triglycerides 166 H Cholesterol 251 H LDL Cholesterol, Calc 169 H HDL Cholesterol 49 Lipase 19 Vitamin B12 401 Folate 10.6 TSH 1.62 Urine Color Yellow Urine Appearance Clear Urine pH 5.5 Ur Specific [place] 1.020 Urine Protein Negative Urine Glucose (UA) Negative Urine Ketones Negative Urine Blood Negative Urine Nitrite Negative Ur Leukocyte Esterase Negative Salicylates < 5.0 L Urine Opiates Screen Not Detected Ur Buprenorphine Scrn Not Detected Ur Oxycodone Screen Not Detected Urine Methadone Screen Not Detected Urine Fentanyl Screen Not Detected Acetaminophen < 3 Ur Barbiturates Screen Not Detected Ur Phencyclidine Scrn Not Detected Ur Amphetamines Screen POSITIVE H U Benzodiazepines Scrn Not Detected Urine Cocaine Screen POSITIVE H U Marijuana (THC) Screen Not Detected Ethyl Alcohol 28 Imaging Diagnostic Imaging Impressions Head CT 06/07/24 20:29 IMPRESSION: 1. No evidence of acute intracranial hemorrhage or edematous territorial infarction. 2. Mild to moderate underlying microangiopathy and generalized cerebral volume loss. Electronically signed by: Abhishek Jenkins DO 06/08/2024 01:21 AM EDT DS: Summary Hospital Course Hospital Course: The patient is a 58-year-old female, with a past history of bipolar disorder who self presented to the emergency room complaining of exacerbation of depression with suicidal ideation. The patient was seen before last summer with a similar presentation and transferred to [facility]. She was assessed by the crisis team and transferring to this facility for psychiatric stabilization. Please see the HPI of the admission note for further details. On admission, the patient admitted partial compliance with medications so she decided to restart her Prozac and other medications such as gabapentin and other meds. We stopped the Wellbutrin since the patient reported that it did not work at all. The patient also came positive to cocaine and Adderall on admission, she reported that she relapsed after 20 years of sobriety but that is unlikely since last February he came up with a similar presentation. The patient was able to be compliant with medications in the unit, she was future oriented and she adamantly denies suicidal ideation. She signed a 3 day notice fully aware of the risks and benefits. On admission, it was clear that the patient was depressed but later on the same day she presented with labile mood exit seeking behavior and disruption. She needed to be medicated with p.r.n. Zyprexa with for improvement. We discussed with the patient other treatment options besides gabapentin as a mood stabilizer and she agreed to start Zyprexa that was titrated up to 5 mg p.o. q.h.s. with for tolerability. Since there were no active safety concerns discharge planning was started since the patient signed a 3 day notice. At the moment of the discharge the patient adamantly denies suicidal ideation and she is willing to follow outpatient providers. Time spent discussing smoking cessation with patient: 3 to 10 minutes Status at Discharge Cognitive/behavioral status at discharge: At baseline Functional status at discharge: independent ambulation Overall status at discharge: patient is back to baseline Time Spent with Patient Time attestation: Total time managing care of this patient today _30___ minutes. Time spent: Less than 30 minutes Discharge Plan Discharge Anticipated Discharge Date/Time: 06/13/24 11:00 Patient Disposition: Home, Self-Care Discharge Diagnosis: Bipolar disorder most recent episode depressed severe. Cocaine use disorder Referrals: [facility] [Other] - 1 Week (Request was made for appointment with your [facility] providers. Office will follow up with you with appointment date and time. ) [facility] PHP [facility] [Other] - 1 Week Dept. of Transitional Assistance (DTA):Apply for food stamps [Other] - 1 Week (Walk-in M-F 9am-4pm to request assistance in applying for food stamps ) Fabiana Rae MD [Primary Care Provider] - 1 Week Discharge Medications: New acetaminophen 325 mg Tablet 650 mg PO Q6H PRN (Reason: Headache/Pain Mild Scale (1-3)) 30 Days Qty: 60 0RF gabapentin 400 mg Capsule 400 mg PO BID@0830,2029 30 Days Qty: 60 0RF gabapentin 400 mg Capsule 800 mg PO DAILY@1230 30 Days Qty: 60 0RF olanzapine 5 mg Tablet 5 mg PO BEDTIME 30 Days Qty: 30 0RF clonazepam 1 mg Tablet 1 mg PO BID PRN (Reason: anxiety) 30 Days Qty: 60 0RF trazodone 100 mg Tablet 100 mg PO BEDTIME 30 Days Qty: 30 0RF hydroxyzine HCl 25 mg Tablet 25 mg PO Q6H PRN (Reason: Anxiety) 30 Days Qty: 60 0RF fluticasone propionate 50 mcg/actuation [place],Suspension 1 spray intranasal BID 30 Days Qty: 1 0RF naloxone [Narcan] 4 mg/actuation spray,non-aerosol 1 spray intranasal Q2M Qty: 2 0RF Rx Instructions: spray 1 dose into ONE nostril; alternate nostrils w each dose until help arrives Continued fluoxetine 40 mg capsule 80 mg PO DAILY 30 Days Qty: 60 0RF omeprazole 20 mg capsule,delayed release(DR/EC) 20 mg PO DAILY 30 Days Qty: 30 0RF Discontinued gabapentin 400 mg capsule 400 mg PO DAILY@0800,1200,2000 clonazepam 1 mg tablet 0.5 - 1 mg PO BID PRN (Reason: anxiety) bupropion HCl 200 mg tablet sustained-release 12 hr 200 mg PO DAILY Discharge Orders: Discharge Order (Routine); Ordered 06/13/24 Ordered By: Yuri Perkins Diet: Advance to usual diet Activity on Discharge: As tolerated Stand Alone Forms: Patient Portal Discharge page Print Language: Sinhala Care Plan Goals: Care plan goals achieved in this admission Health Concerns: Continue treatment with primary care and other specialists. Plan of Treatment: Continue with outpatient providers. Assessment: The patient is a 58-year-old female with a past history of bipolar disorder and cocaine use disorder on denial, admitted after she self report of suicidal ideation in the context of noncompliance. She was restarted on her medications, she signed a 3 day notice and she was able to contract for safety. At this moment there is no safety concerns ready to be discharged to the community. Highly functional baseline.
[2024-06-13 08:59] VITALS: BP 113/58; PULSE 77; RESP 16; TEMP 36.7; O2SAT 98
[2024-06-13] MEDS: Fluticasone Propionate Nasal 16 GM SPRAY 1 SPRAY NOSTRIL-B (09:04)
[2024-06-13] MEDS: FLUoxetine HCl 20 MG CAPSULE 80 MG PO (09:05)
[2024-06-13] MEDS: Gabapentin 400 MG CAPSULE PO (09:05)
[2024-06-13] MEDS: OLANZapine 5 MG TABLET PO (09:05)
[2024-06-13] MEDS: Acetaminophen 325 MG TABLET 650 MG PO (09:05)
[2024-06-13] MEDS: Gabapentin 400 MG CAPSULE 800 MG PO (12:07)
[2024-06-13] MEDS: hydrOXYzine HCL 25 MG TABLET PO (12:10)
== END 2024-06-13 13:35 | disposition home or self-care (01) | DRG 885 ==
LOC: HO.ED 06-07 08:28 → HO.PGERI 06-07 16:10
PROVIDERS: Emergency Medicine; Physician Assistant; Admitting Provider Social Worker; Emergency Provider Emergency Medicine Emergency Medical Services; PCP Internal Medicine; Visit Provider Social Worker
DX: F31.4 Bipolar disorder, current episode depressed, severe, without psychotic features (principal); R45.851 Suicidal ideations; Z23 Encounter for immunization; Z87.891 Personal history of nicotine dependence; Z79.51 Long term (current) use of inhaled steroids; Z79.899 Other long term (current) drug therapy
CPT/HCPCS: 36415; 70450; 80048; 80053; 80061; 80076; 80143; 80179; 80307; 81003; 82607; 82746; 83036; 83690; 83735; 84443; 85025; 90656; 93005; 99285; S9485

== ENCOUNTER → 2024-06-07 08:17 | Outpatient (BNV) | payer OTHER, MEDICAID, SELFPAY | PROVIDERS: Admitting Provider Social Worker; Emergency Provider Emergency Medicine Emergency Medical Services; PCP Internal Medicine; Visit Provider Internal Medicine | DX: R00.1 Bradycardia, unspecified (principal) | CPT/HCPCS: 93010 ==

== ENCOUNTER → 2024-06-07 15:24 | Outpatient (BNV) | payer OTHER, MEDICAID, SELFPAY | PROVIDERS: Admitting Provider Social Worker; Emergency Provider Emergency Medicine Emergency Medical Services; PCP Internal Medicine; Visit Provider Psychiatry & Neurology Psychiatry | DX: F31.32 Bipolar disorder, current episode depressed, moderate (principal); F14.10 Cocaine abuse, uncomplicated | CPT/HCPCS: 90792; 99231; 99232; 99238 ==

== ENCOUNTER → 2024-07-13 15:01 | Outpatient (BNVA) | payer OTHER, MEDICAID, SELFPAY | PROVIDERS: PCP Internal Medicine; Visit Provider Internal Medicine ==

== ENCOUNTER 2024-08-10 15:25 | Outpatient (AMB) | payer OTHER, SELFPAY ==
--- NOTE | 2024-08-10 15:52 | MHC.PC.OV ---
Vital Signs 08/10/24 15:53 Height 5 ft 6 in Weight 132 lb BMI 21.3 BP 142/74 H Blood Pressure Location Rt brachial Position Sitting Pulse 100 Pulse Source Pulse Oximeter Pulse Oximetry (%) 95 Oxygen Delivery Method Room Air Intake Visit Reasons: disability paperwork Intake Note: Pt is here today to discuss disabiltiy paperwork Allergies iodine [Iodine] Allergy (Severe, Verified 08/13/24 22:07) ANAPHYLAXIS Shellfish Allergy (Severe, Uncoded 08/13/24 22:07) ANAPHYLAXIS [id number] Allergy (Mild, Uncoded 08/13/24 22:07) stomach upset Environmental Allergy (Mild, Uncoded 08/13/24 22:07) itchy watery eyes, sneezing Medication List - Last Reconciled 08/10/24 by Fabiana Rae MD acetaminophen 650 mg (2 x 325 mg) PO Q6H PRN 30 days clonazepam 1 mg PO BID PRN 30 days fluoxetine 80 mg (2 x 40 mg) PO DAILY 30 days fluticasone propionate 50 mcg/actuation 1 spray intranasal BID 30 days gabapentin 800 mg (2 x 400 mg) PO DAILY@1230 30 days hydroxyzine HCl 25 mg PO Q6H PRN 30 days olanzapine 5 mg PO BEDTIME 30 days omeprazole 20 mg PO DAILY 30 days trazodone 100 mg PO BEDTIME 30 days Tobacco use date assessed: 08/10/24 Dental Screening Dental Screen Date: 08/10/24 Did you have a dental visit in the last 12 months?: Yes Did you have a dental problem in the last 6 months where you did not have access to dental care?: Yes Was dental information given to patient?: Patient has dentist HPI disability paperwork HPI Details 58-year-old lady with past medical history significant for bipolar disorder, cocaine use , migraine headache, here today requesting help with getting her disability papers and FMLA application completed. Very distraught during this visit, as she states that she not received any pay check in the last month, and is in debt, needs assistance to help cover her rent, and needs assistance with getting food on the table. [facility] Medical History (Updated 08/13/24 @ 22:34 by Fabiana Rae MD) Bipolar disorder current episode depressed Vaginal dryness, menopausal Episodic ataxia Macular degeneration of left eye Migraine Diverticulosis of colon Smoker Anxiety disorder Bartholin's gland cyst Calcific tendinitis of right shoulder region Chronic gastritis Mixed dyslipidemia Cervical neck pain with evidence of disc disease Restless leg syndrome Dysequilibrium Surgical History H/O esophagogastroduodenoscopy H/O colonoscopy S/P trigger finger release Status post arthroscopy of right shoulder Family History Other No pertinent family history in first degree relatives Social History Household Members: None Housing: Apartment Do you presently have visiting nurse or other home services: No Alcohol intake: current Alcohol intake frequency: holidays/special occasions only Patient Tobacco Use Status: Former Tobacco user Tobacco use type: Cigarette Cigarette Packs Per Day: 1 Cigarettes Per Day: 20 e-Cigarette/Vaping Use: Currently Using Second Hand Smoke Exposure: No Substance Use Type: Amphetamines and Crack/Cocaine service: No Current occupational status: unemployed Current occupation: behavioral health Current occupational exposures/hazards: No Sexual orientation: Straight/Heterosexual Cognitive needs: No Hearing needs: No Vision needs: No Questionnaire Thrive Questionnaire Date Thrive assessed: 03/15/24 I am a: Patient What is your living situation today?: I have a place to live, but I am worried about losing it in the future Within the past 12 months, did the food you bought not last and you didn't have the money to get more?: Often true Within the past 12 months, did you worry whether your food would run out before you got money to buy more?: Often true Do you have trouble paying for medicines?: Yes Do you have trouble getting transportation to medical appointments?: Yes Do you have trouble paying your heating and electricity bill?: Yes Do you have trouble taking care of your child, family member or friend?: No Do you have trouble with day-to-day activities such as bathing, preparing meals, shopping, managing finances, etc.?: No Are you currently unemployed and looking for a job?: No Are you interested in more education?: I choose not to answer this question Please select the resources that you would like help with: Housing/Group Home, Food, Paying for medicine, Transportation, Utilities, Daily support and None Currently or been in a relationship where the following occur: I choose not to answer THRIVE Score: 5 SAMMIE-7 AMB Questionnaire SAMMIE-7 Date SAMMIE - 7 assessed: 03/15/24 Source: Developed by Drs. Pio Gama, Eleanor Ortega, Ismael Harris and colleagues, with an educational olegario from [employer]. Review of Systems Const Denies body aches, Reports difficulty sleeping, Reports fatigue, Denies headache(s) and Reports poor appetite Eyes Denies change in vision ENT Reports no additional complaints, Denies dizziness, Denies headache(s) and Denies disequilibrium Card Reports no additional complaints and Denies syncope Resp Reports no additional complaints GI Reports no additional complaints Reports no additional complaints Musc Reports no additional complaints Neuro Denies dizziness, Denies syncope, Denies headache(s), Denies focal weakness, Denies seizure-like activity, Denies Sensory deficit (Neuro) and Denies disequilibrium Endo Reports fatigue Donnie/Lymph Reports no additional complaints Aller/Immun Reports no additional complaints Physical exam (Primary Care) Vital Signs: Last Vital Signs Pulse 100 08/10/24 15:53 BP 142/74 H 08/10/24 15:53 Pulse Ox 95 08/10/24 15:53 Oxygen Delivery Method Room Air 08/10/24 15:53 BMI result Body Mass Index 21.3 Tobacco/Smoking Status: Tobacco use Status Tobacco use date assessed 08/10/24 08/10/24 16:00 Patient Tobacco Use Status Former Tobacco user 08/10/24 16:00 Tobacco use type Cigarette 08/10/24 16:00 e-Cigarette/Vaping Use Currently Using 08/10/24 16:00 Thrive Assessment: Date of Thrive Assessment Date Thrive assessed 03/15/24 08/10/24 16:00 Currently or been in a relationship where the following occur: I choose not to answer Const General: tired appearing Nutritional Appearance: average body habitus Orientation/consciousness: patient oriented x3 HENMT General nose exam: Normal external nose present Face and sinus: Yes face symmetric Mouth: Normal oral and palatal mucosa present and oropharynx normal Neck Neck: Yes full ROM and Yes supple Resp Auscultation: clear to auscultation bilaterally Cardio Rate: regular rate Rhythm: regular rhythm Heart sounds: S1 normal heart sound present and S2 normal heart sound present GI Palpation (GI): Soft to palpation, nontender and no guarding Auscultation: normal bowel sounds Neuro General: patient oriented x3, gait normal, moves all extremities and no focal motor deficits Sensory Exam: No Sensory deficit (Neuro) Extrem General: Yes full ROM, Yes no joint enlargement, Yes no clubbing, cyanosis or edema, Yes no calf tenderness and Yes normal gait Psych Appearance: grossly normal Mental Status: other (difficulty focusing) Speech and movement: Pressured speech present Affect: Anxious affect present Attitude: cooperative Thought process: Normal thought process present Thought content: Normal thought content present Coding Level of Care Code Est Pt Level 4 (43971) Diagnoses Bipolar affective disorder, currently depressed, moderate F31.32 Current episode severity: moderate Food insecurity Z59.41 Housing instability Z59.819 Assessment & Plan Assessment & Plan (1) Bipolar disorder current episode depressed: Code(s): F31.30 - Bipolar disorder, current episode depressed, mild or moderate severity, unspecified Category: Medical Qualifiers: Current episode severity: moderate Qualified Code(s): F31.32 - Bipolar disorder, current episode depressed, moderate (2) Food insecurity: Code(s): Z59.41 - Food insecurity Category: Medical (3) Housing instability: Code(s): Z59.819 - Housing instability, housed unspecified Category: Social Hx Plan Her disability form and FMLA form was completed, and given back to patient. Referred to Nava MARKS for assistance in getting help with food stamps, and findings stable housing which she can afford. Patient is currently being followed at [facility] by psychiatrist and sees her therapist regularly. An appointment has been scheduled to follow-up again with Nava for assistance
[2024-08-10 15:53] VITALS: BP 142/74; PULSE 100; O2SAT 95; BMI 21.3
== END 2024-08-10 16:54 | disposition home or self-care (01) ==
PROVIDERS: PCP Internal Medicine; Visit Provider Internal Medicine
DX: F31.32 Bipolar disorder, current episode depressed, moderate (principal); Z59.41 Food insecurity; Z59.819 Housing instability, housed unspecified

== ENCOUNTER → 2024-08-10 15:25 | Outpatient (BNVA) | payer OTHER, SELFPAY | PROVIDERS: PCP Internal Medicine; Visit Provider Internal Medicine | DX: F31.32 Bipolar disorder, current episode depressed, moderate (principal); Z59.41 Food insecurity; Z59.819 Housing instability, housed unspecified | CPT/HCPCS: 99212 ==

== ENCOUNTER 2024-09-13 16:20 | Outpatient (REF) | payer OTHER, SELFPAY ==
--- NOTE | ~2024-09-13 | XR_ITS ---
EXAMINATION: XR SHOULDER, RIGHT CLINICAL INFORMATION: M25.511 - Pain in right shoulder COMPARISON: None available. TECHNIQUE: Three views of the right shoulder. FINDINGS: No fracture, dislocation, or suspicious bone lesion. Normal alignment. Mild glenohumeral joint space narrowing without significant spurring. Mild to moderate spurring of the AC joint, predominantly superior surface. There is preservation of the subacromial space. There is abundant calcification in the region of the supraspinatus tendon abutting the greater tuberosity suggestive of significant calcific tendinopathy. Emphysematous changes noted in the imaged right lung. XR/XR shoulder RT min 2V IMPRESSION: 1. Significant calcific tendinopathy of the rotator cuff. 2. Mild degenerative arthritis glenohumeral joint and AC joint. Electronically signed by: Mc Adames MD 09/13/2024 04:43 PM RED
== END 2024-09-13 16:21 | disposition home or self-care (01) ==
LOC: HO.HMGCX 16:20
PROVIDERS: PCP Internal Medicine; Visit Provider Physician Assistant
DX: M25.511 Pain in right shoulder (principal); N89.8 Other specified noninflammatory disorders of vagina
CPT/HCPCS: 73030; 99212

== ENCOUNTER → 2024-09-13 16:23 | Outpatient (BNV) | payer OTHER, SELFPAY | PROVIDERS: PCP Internal Medicine; Visit Provider Radiology Diagnostic Radiology | DX: M75.31 Calcific tendinitis of right shoulder (principal); M19.011 Primary osteoarthritis, right shoulder | CPT/HCPCS: 73030 ==

== ENCOUNTER 2024-09-20 12:49 | Outpatient (AMB) | payer OTHER, SELFPAY ==
[2024-09-20 13:03] VITALS: BP 120/82; PULSE 86; O2SAT 96; BMI 21.5
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
--- OUTSIDE RECORDS SUMMARY | 2024-09-20 14:11 | XMS_ITS | Clinical Summary ---
Author Organization [employer] Address [address] [facility] [address] [place] [address] Care Team Providers Care Driver Salesman Name Role Phone Unavailable Primary Care Provider Unavailabl e Allergies Active Allergy Reactions Criticality Noted Date Comments Shellfish Allergy 02/04/2023 Medications aspirin 81 MG EC tablet aspirin 81 mg tablet,delayed release Active omeprazole (PriLOSEC) [address] capsule Take 40 mg by mouth in the morning. 3 Active FLUoxetine (PROzac) 20 MG capsule fluoxetine 20 mg capsule 0 Active FLUoxetine (PROzac) 40 MG capsule Take one (1) capsule by mouth daily. TDD 60mg 3 Active carisoprodol (Soma) 350 MG tablet TAKE 1 TABLET BY MOUTH DAILY NEEDED FOR MUSCLE spasm 3 Active clonazePAM (KlonoPIN) 0.5 MG tablet Take one (1) tablet by mouth twice a day as needed for anxiety 3 Active topiramate (Topamax) 100 MG tablet Take 100 mg by mouth 2 times daily. 3 Active albuterol 108 (90 Base) MCG/ACT inhaler Inhale. 0 Active clonazePAM (KlonoPIN) 0.5 MG tablet TAKE 1 TABLET BY MOUTH ONCE DAILY NEEDED FOR panic attacks 0 Active estradiol (Estrace) 0.1 MG/GM vaginal cream insert 1gram intravaginally twice a week, advise that this is a hormone, and may cause worsening of migraine 3 Active gabapentin (Neurontin) 400 MG capsule TAKE 1 CAPSULE BY MOUTH IN THE MORNING, 2 CAPSULES AT NOON, AND 1 cap IN THE pm 0 Active Glucosamine HCl 1500 MG tablet Take 1,500 mg by mouth. 0 Active Loratadine 10 MG capsule Take 10 mg by mouth. 0 Active omeprazole (PriLOSEC) [address] capsule TAKE 1 CAPSULE BY MOUTH ONCE DAILY 30 MINUTES BEFORE MORNING MEAL 0 Active SUMAtriptan (Imitrex) 100 MG tablet Take 100 mg by mouth. 2 Active topiramate (Topamax) 100 MG tablet Take 100 mg by mouth. 2 Active Encounters Date Type Department Care Team Description 06/28/2024 Patient Outreach [facility] [address] [place] [address] Warren Copeland MD Care Coordination (Outreach) 06/21/2024 Patient Outreach [facility] [address] [place] [address] Warren Copeland MD Care Coordination (Outreach) from Last 3 Months Social History Tobacco Use Types Packs/Day Years Used Date Smoking Tobacco: Every Day Passive Smoke Exposure: Never Smokeless Tobacco: Never Tobacco Cessation:Ready to Q uit: Not Asked; Counseling Given: Not Answered Alcohol Use Standard Drinks/Week Comments Yes 0 (1 standard drink = 0.6 oz pur e alcohol) Comments Unknown Sex and Gender Information Value Date Recorded Sex Assigned at Choose not to disclose 9:44 AM EDT Legal Sex Female 5:35 PM EDT Gender Identity Choose not to disclose 9:44 AM EDT Sexual Orientation Choose not to disclose 2022 9:44 AM EDT Plan of Treatment Health Maintenance Due Date Last Done Comments CT Colonography 1963 Colonoscopy 1963 Colorectal Cancer Screening 1963 Depression Screening 1963 FIT DNA/Cologuard 1963 FIT 1963 FOBT 1963 HIV Screening 1963 Lipid Panel 1963 SDOH Screening 1963 Sigmoidoscopy 1963 Pneumococcal Vaccine: Pediatrics (0 to 5 Years) and At-Risk Patients (6 to 49) Years) (1 of 2 - PCV) 1969 Alcohol/Substance Use Screening 1975 Hepatitis C Screening 1981 Pneumococcal Vaccine: 50+ Years (1 of 2 - PCV) 1982 Pap Smear 1984 Cervical Cancer Screening 1993 HPV/Cotest 1993 Mammogram 2003 Dental Oral Exam 08/07/2023 02/04/2023, 04/2018, 12/18/2016 Dental Prophylaxis 08/07/2023 02/04/2023, 0 10/15/2017, 04/16/2017 Tobacco Screening 02/05/2024 02/04/2023 Dental X-Ray: Bitewings 02/06/2024 02/04/2023, 12/18 COVID-19 Vaccine ( season) 2024 07/09/2021, 10/16/2020, 09/13/2020 Influenza Vaccine (#1) 2024 , 06/18/2021, 05/23/2020, Additional history exists Dental X-Ray: Full Mouth 02/05/2026 02/04/2023, 12/07 DTaP/Tdap/Td Vaccines (2 - Td or Tdap) 12/21/2027 12/20/2017 RSV Patients and Patients Aged 60 years or older (1 - 1-dose 75+ series) 2038 Zoster Vaccines Completed 08/15/2021, 03/24/2021 HIB Vaccines Aged Out No longer eligi ble based on patient's age to complete this topic HPV Vaccines Aged Out No longer eligi ble based on patient's age to complete this topic Hepatitis A Vaccines Aged Out No long er eligible based on patient's age to complete this topic Hepatitis B Vaccines Aged Out No long er eligible based on patient's age to complete this topic IPV Vaccines Aged Out No longer eligi ble based on patient's age to complete this topic Meningococcal Vaccine Aged Out No mane samuel eligible based on patient's age to complete this topic RSV under 20 months Aged Out No longe r eligible based on patient's age to complete this topic Rotavirus Vaccines Aged Out No longer eligible based on patient's age to complete this topic Procedures Procedure Name Priority Date/Time Associated Diagnosis Comments Full PROPHYLAXIS - ADULT Routine 023 12:00 PM EDT DIAGNOSTIC - DIAGNOSTIC IMAGING - INTRAORAL - COMPREHENSIVE SERIES OF RADIOGRAPHIC IMAGES Routine 02/04/2023 12:00 PM EDT PERIODIC ORAL EVALUATION - ESTABLISHED PATIENT Routine 02/04/2023 12:00 PM EDT from Last 3 Months or Most Recently Relevant to Health Maintenance
== END 2024-09-20 13:38 | disposition home or self-care (01) ==
PROVIDERS: PCP Internal Medicine; Visit Provider Internal Medicine
DX: S69.92XA Unspecified injury of left wrist, hand and finger(s), initial encounter (principal); M79.642 Pain in left hand

== ENCOUNTER 2024-09-20 12:49 | Outpatient (REF) | payer OTHER, SELFPAY ==
--- NOTE | ~2024-09-20 | XR_ITS ---
EXAMINATION: XR HAND 1-2 VIEWS LEFT HISTORY: PAIN, R/O FX COMPARISON: There are no prior studies available for comparison. FINDINGS: Four views of the left hand are submitted. Osseous mineralization is normal. There is no fracture or dislocation. The joint spaces are preserved. The soft tissues are unremarkable. XR/XR hand LT 2V IMPRESSION: Unremarkable examination of the left hand. Electronically signed by: Pio Romo MD 09/20/2024 02:12 PM RED
--- OUTSIDE RECORDS SUMMARY | 2024-09-20 15:08 | XMS_ITS | Clinical Summary ---
Author Organization [employer] Address [address] [facility] [address] [place] [address] Care Team Providers Care Production Planning Supervisor Name Role Phone Unavailable Primary Care Provider [...] Department Care Team Description 06/28/2024 Patient Outreach [facility] [address] [place] [address] Warren Copeland MD Care Coordination (Outreach) 06/21/2024 Patient Outreach [facility] [address] [place] [id number] Warren Copeland MD Care Coordination (Outreach) from [...]
== END 2024-09-20 12:50 | disposition home or self-care (01) ==
LOC: HO.HMGCX 12:49
PROVIDERS: PCP Internal Medicine; Visit Provider Internal Medicine
DX: S69.92XA Unspecified injury of left wrist, hand and finger(s), initial encounter (principal)
CPT/HCPCS: 73120; 99212

== ENCOUNTER → 2024-09-20 13:54 | Outpatient (BNV) | payer OTHER, SELFPAY | PROVIDERS: PCP Internal Medicine; Visit Provider Radiology Diagnostic Radiology | DX: M79.642 Pain in left hand (principal) | CPT/HCPCS: 73120 ==